=== PATIENT | female | born 1950 | race Caucasian/White ===

== ENCOUNTER 2023-05-28 10:17 | Outpatient (CLI) | payer MEDICARE, OTHER, SELFPAY ==
[2023-05-28 11:16] LABS: Absolute Lymphocyte Count 1.87 X10^3/uL (0.83-4.51); Absolute Neutrophil Count 4.6 X10^3/uL (2.0-7.7); Basophil# 0.05 X10^3/uL; Basophil% 0.7 % (0-1); Eosinophil# 0.08 X10^3/uL; Eosinophils% 1.1 % (0-5); Hematocrit 42.5 % (37-47); Hemoglobin 13.7 g/dL (12.0-15.0); Lymphocyte # 1.87 X10^3/ul (0.83-4.51); Lymphocyte % 25.9 % (19-41); Mean Corp Hgb Conc 32.2 g/dL (32-36); Mean Corpuscular Hgb 27.5 pg (27.0-32.0); Mean Corpuscular Volume 85.3 fL (81-99); Mean Platelet Vol. 11.7 fl (6.2-12.0); Monocyte# 0.59 X10^3/uL; Monocyte% 8.2 % (0-10); NRBC Flagged by Analyzer 0 % (0-5); Neutrophil # 4.59 X10^3/uL (2.7-7.7); Neutrophil % 63.7 % (47-70); Platelet Count 351 K/mm3 (150-450); RBC Distribution Width CV 14.5 % (11.6-14.6); RBC Distribution Width SD 44.7 fl (35.1-43.9); Red Blood Count 4.98 M/mm3 (4.2-5.4); White Blood Count 7.2 K/mm3 (4.4-11.0)
[2023-05-28 11:41] LABS: ALB/GLOB Ratio 1.1 RATIO (0.9-2.4); AST(SGOT) 16 U/L (15-37); Alanine Aminotransfer ALT/SGPT 21 U/L (13-56); Alkaline Phosphatase 90 U/L (45-117); Anion Gap 6 (5-15); BUN 8 mg/dL (7-18); BUN/Creat Ratio 7.9 RATIO (10-20); Calcium,Total 9.3 mg/dL (8.5-10.1); Chloride 105 mmol/L (98-107); Creatinine, Serum 1.01 mg/dL (0.55-1.02); EST Glomerular Filtration Rate 57 mL/min (>60); Est Glom Filt Rate - Afr Amer 69 mL/min (>60); Ferritin 58 ng/mL (8-252); Free T3 3.5 pg/mL (2.18-3.98); Globulin 3.5 g/dL (2.2-4.2); Glucose 84 mg/dL (74-106); Iron 75 ug/dL (50-170); Potassium 3.8 mmol/L (3.5-5.1); Protein, Total 7.5 g/dL (6.4-8.2); Sodium Level 141 mmol/L (136-145); T4 Free Direct 1.11 ng/dL (0.76-1.46); Thyroid Stim Hormone (TSH) 1.52 uIU/mL (0.358-3.74)
== END 2023-05-28 23:59 | disposition home or self-care (01) ==
PROVIDERS: Referring Provider Nurse Practitioner Family; Visit Provider Nurse Practitioner Family
DX: R53.82 Chronic fatigue, unspecified (principal); G31.84 Mild cognitive impairment of uncertain or unknown etiology; R10.9 Unspecified abdominal pain; R63.4 Abnormal weight loss; R19.7 Diarrhea, unspecified; R30.0 Dysuria; R39.82 Chronic bladder pain; R53.81 Other malaise; E03.9 Hypothyroidism, unspecified
CPT/HCPCS: 80053; 82728; 83540; 84439; 84443; 84481; 85025

== ENCOUNTER → 2023-11-26 | Outpatient (CLI) | payer MEDICARE, OTHER, SELFPAY ==
[2023-11-26 09:10] VITALS: BP 153/71; PULSE 78; RESP 16; O2SAT 96; BMI 29.2
--- NOTE | 2023-11-26 10:53 | PRO.PCM_ITS ---
Procedure Report Date of Procedure: 11/26/23 Assessment & Plan Assessment/Plan (1) Complicated UTI (urinary tract infection): Procedures Radiology Radiology US Procedures: Other Procedure See Report (Outpatient PICC line insertion w/ imaging [id number]) Procedure Time Out Time Out Informed consent given: Yes Consent signed: Yes Time out checklist: patient, procedure, site marked/identified, positioning of patient, supplies available and allergies confirmed Time out staff in room: Yes Time out verified: Yes Time out date: 11/26/23 Time out time: 09:15 PICC Line Consent Screening tool completed:: Yes Consent obtained:: Yes Consent given by (patient or responsible libertarian):: patient Line successful (if no, document why in comments):: Yes Insertion Reason for Insertion: Intermediate Medication Date of Insertion: 11/26/23 Ok to use: Yes Type of PICC inserted: Dual Power PICC PICC Lot #: [id number] PICC Reference #: [id number] Microintroducer Used: Yes (in kit) Ultrasound/Equipment Used: Probe Cover Kit Trimmed Length (cm): 39 Insertion Length (cm): 39 Exposed Length (cm): 0 Tip Placement: Caval Atrial Junction Placement Confirmation: 3CG Insertion Vein: Right Brachial Insertion Attempts: 1 Local Anesthesia Used: Lidocaine 1% (in kit) Dressing Applied: Statlock and Tegaderm CHG Arm Measurement above site (in cm): 26 Patient Tolerated Procedure: Well Threading Difficulties: Yes Comments Comment: Patient identity was verified with two patient identifiers. Informed consent was obtained and time-out was completed. Hands were sanitized. The patient was positioned supine with right arm at 90 degrees. The patient's upper arm vasculature was assessed using ultrasound, and the right brachial vein was externally marked. An external measurement was obtained of 39 cm. External leads were applied to the patient's right upper chest and laterally and inferior of the umbilicus on the mid axillary line. Cap, mask, and prep gloves were donned. The underdrape was placed under the patient's arm. The site was prepped with chlorhexidine, and tourniquet was loosely applied. Prep gloves were discarded, and hands were sanitized. The sterile kit was opened with additional supplies dropped in. Sterile gown and gloves were donned, and the patient was draped. The sterile kit was assembled with all needle, introducer, connector, and catheter flushed with sterile normal saline. The marked site of insertion was anesthetized with 1% lidocaine. Patient tolerated well. The right brachial vein was then accessed using ultrasound guidance and guidewire was inserted to safety piyush. The tourniquet was released. The access needle was removed while securing the guidewire in place. The site was again anesthetized with 1% lidocaine, prior to insertion of introducer sheath and dilator. Patient tolerated well. The catheter was trimmed to a length of 39 cm. Using 3C guidance, the catheter was then inserted through the introducer sheath, slowly. There was mild resistance on insertion; however, with patient right arm abduction the catheter was able to be advanced easily. Maximal p-wave, without deflection, was obtained at an insertion length of 39 cm, leaving 0 cm external. The introducer sheath was retracted and peeled away, incrementally, while keeping the catheter secured. The stylet was removed. A flushed needleless connector was attached to each lumen. Blood return was verified and each lumen was flushed with sterile normal saline in a pulsatile fashion. Each lumen was also flushed with a 5 mL heparin flush per provider order and clamped. Total sterile flushes used for the insertion was 8 10 ml syringes. Finally, the insertion site was cleaned with chlorhexidine, and the catheter was secured using a StatLock. The site was covered with a Tegaderm CHG Dressing. Baseline arm circumference was obtained at the insertion site and measured 26 cm. The patient and were provided with a patient education handout on PICC line care and verbalized understanding of infection prevention, heavy lifting restriction, maintaining mobility, and watching for any signs of infection. Patient and are reporting to nurse practitioner Wanda Brunson for further instruction on antibiotic administration and dressing changes. Again PICC line placement verification in the [facility] was obtained using 3 CG te chnology and PICC line is ready for use.
== END | disposition home or self-care (01) ==
PROVIDERS: PCP Family Medicine; Referring Provider Nurse Practitioner Family; Visit Provider Nurse Practitioner Family
DX: N39.0 Urinary tract infection, site not specified (principal); B96.1 Klebsiella pneumoniae [K. pneumoniae] as the cause of diseases classified elsewhere; A77.40 Ehrlichiosis, unspecified
CPT/HCPCS: 36569

== ENCOUNTER 2023-12-03 07:48 | Outpatient (CLI) | payer MEDICARE, OTHER, SELFPAY ==
--- OUTSIDE RECORDS SUMMARY | 2023-12-03 08:16 | XMS RPT_ITS | CCD ---
Author Name Unknown Address [address] [place] [address] Organization [facility] Care Team Providers Care Polyethylene Combiner Name Role Phone Alina Reece Primary Care Provider Allison Post Admitting Unavailable Allison Post Attending Unavailable INES CHAMBERLAIN Attending Unavailable ALINA REECE Primary Care Unavailable INES CHAMBERLAIN Admitting Unavailable INES CHAMBERLAIN Referring Unavailable ALINA REECE Primary Care Unavailable INES CHAMBERLAIN Admitting Unavailable INES CHAMBERLAIN Referring Unavailable ALINA REECE Primary Care Unavailable INES CHAMBERLAIN Attending Unavailable ALINA REECE Primary Care Unavailable GAYATRI THOMAS Admitting Unavailable MARTHA BELLA Attending Unavailable GAYATRI THOMAS Referring Unavailable REECEALINA DUNCAN Primary Care Unavailable INES CHAMBERLAIN Admitting Unavailable ROSALIND DERAS Attending Unavailable INES CHAMBERLAIN Referring Unavailable REECEALINA DUNCAN Primary Care Unavailable CHAMBERLAININES [place] Admitting Unavailable IDALIA ESCALANTE Attending Unavailable INES CHAMBERLAIN Referring Unavailable ALINA REECE Primary Care Unavailable MARTHA BELLA Attending Unavailable MARTHA BELLA Referring Unavailable ALINA REECE Primary Care Unavailable Alina Reece Primary Care Provider Alina Reece Unavailable Unavailable Unavailable Alina Reece Unavailable [phone] Carleen Marques Unavailable Unavailable Carleen Francisco Unavailable Unavailable Unavailable Unavailable Ross Cotter Unavailable Unavailable Sippey, Fide Unavailable Alejandro Lobo Unavailable Unavailab le FloridalmaMarcelle Unavailable Shanell COWART, Alina Kelly Primary Care Provider [phone] HUSSEIN MILLER Attending Unavailable REECE, ALINA LETICIA Primary Care Unavailable Unavailable Unavailable STENTZ, Mr. EID Attending Unavailable REECE, ALINA LETICIA Primary Care Unavailable STENTZ, Mr. EID Referring Unavailable Sippey, Fide Attending Unavailable Floridalma, Marcelle Referring Unavailable REECE, ALINA LETICIA Primary Care Unavailable LEE, AUBREE BOWSERARD Referring Unavailable LEE, AUBREE LOPEZ Attending Unavailable REECE, ALINA LETICIA Primary Care Unavailable LEE, AUBREE TERESE Referring Unavailable LEE, AUBREE LOPEZ Attending Unavailable REECE, ALINA LETICIA Primary Care Unavailable LEE, AUBREE TERESE Referring Unavailable LEE, AUBREE LOPEZ Attending Unavailable REECE, ALINA LETICIA Primary Care Unavailable STENTZ, Mr. EID Attending Unavailable REECE, ALINA LETICIA Primary Care Unavailable STENTZ, Mr. EID Referring Unavailable STENTZ, Mr. EID Referring Unavailable STENTZ, Mr. EID Attending Unavailable REECE, ALINA LETICIA Primary Care Unavailable REECE, ALINA LETICIA Primary Care Unavailable SHEY, Ms. CHARLEY MAGANA Referring Unavailcindy KAT, Ms. CHARLEY MAGANA Attending Unavailcindy Francisco, Ms. Carleen Gilmore Primary Care Unav ailable Floridalma, Marcelle Referring Unavailable Floridalma, Marcelle Attending Unavailable Floridalma, Marcelle Referring Unavailable Floridalma, Marcelle Attending Unavailable REECE, ALINA LETICIA Primary Care Unavailable MALLAPAREDDI, EILZABETH NAG OSCAR Referring Unavailable MALLAPAREDDI, ELIZABETH NAG OSCAR Attending Unavailable REECE, ALINA LETICIA Primary Care Unavailable Floridalma, Marcelle Attending Unavailable Floridalma, Marcelle Referring Unavailable REECE, ALINA LETICIA Primary Care Unavailable REECE, ALINA LETICIA Primary Care Unavailable MALLAPAREDDI, ELIZABETH NAG OSCAR Referring Unavailable MALLAPAREDDI, ELIZABETH NAG OSCAR Attending Unavailable Maryam, MsKiesha Carleen Deirdre Attending Unav ailable SHANELL, ALINA KELLY Primary Care Unavailable MD ALEJANDRO LOBO Attending Unavai MD MAVERICK Burciaga Admitting Unavailable MD MAVERICK JACKSON Referring Unavailable Reece, Dr. Alina Kelly Primary Care Unavailab le Jerald, Carleen Attending Unavailable Reece, Dr. Alina Kelly Primary Care Unavailab le Kamenik, Kiesha Ross Lepe Attending Unavai lable Reece, Dr. Alina Kelly Primary Care Unavailab le JeraldCarleen Attending Unavailable Shanell, Dr. Alina Kelly Primary Care Unavailab le Sippey, Dr. Elizalde Admitting Unavailable Sippey, Dr. Elizalde Attending Unavailable Floridalma, Dr. Marcelle eFrnando Referring Unavailab le Reece, Dr. Alina Kelly Primary Care Unavailab le Sippey, Dr. Elizalde Attending Unavailable Reece, Dr. Alina Kelly Primary Care Unavailab le Lee II, Dr. Aubree Lopez Attending Unavai lable Lee II, Dr. Aubree Lopez Referring Unavai lable Reece, Dr. Alina Kelly Primary [facility] Unavailab le Sippey, Dr. Elizalde Attending Unavailable Shanell, Dr. Alina Kelly Primary Care Unavailab Alina Fraga MD Primary Care Provider Marcelle Hedrick MD Unavailable ALINA Trejo Primary Care MARCELLE Anguiano Attending Unavailable ALINA REECE Primary Care Unavailable ALINA REECE Primary Care Unavailable MAINEFAVIO PALACIOS Attending Unava ilable Allergies Allergy Classification Reported Allergen(s) Allergy Type Date of Onset Reaction(s) Facility (20 sources) Cephalexin; Translations: [Keflex] Drug Allergy 8 Rash [facility] (20 sources) Enoxaparin; Translations: [Unknown] Drug Allergy 8 Other (See Comments) [facility] (20 sources) heparin; Translations: [HEPARIN (BOVINE)] Drug Allergy 8 Other [facility] (20 sources) mesalamine; Translations: [MESALAMINE] Drug Allergy 5 Other [facility] (20 sources) pork allergenic extract; Translations: [PORK EXTRACT] Drug Allergy 2 [facility] (8 sources) heparin; Translations: [HEPARIN] Drug Allergy 8 Other [facility] (20 sources) Amoxicillin; Translations: [Amoxil] Drug Allergy Rash [facility] Work Phone: (20 sources) Enoxaparin; Translations: [Lovenox] Drug Allergy 8 Other, Unknown [facility] Work Phone: (20 sources) pork allergenic extract; Translations: [PORK] Drug Allergy 2 Unknown [facility] Work Phone: (20 sources) Other Allergy to substance (finding) Other [facility] Work Phone: (5 sources) Amoxicillin Drug Allergy Rash [facility] Medications Current Medications Medication Drug Class(es) Dates Sig (Normalized) Sig (Original) losartan potassium 25 mg oral tablet (20 sources) Angiotensin 2 Receptor Lila Start: 05-23-2022 End: 06-09-2024 take 1 tablet by mouth once daily losartan (Cozaar) 25 mg tablet Indications: Hypertension, unspecified type Take 1 tablet (25 mg) by mouth once daily. 90 tablet 3 06/10/2023 06/09/2024 Active Completed/Discontinued Medications Medication Drug Class(es) Dates Sig (Normalized) Sig (Original) acetaminophen 325 mg oral tablet (4 sources) Start: 02-23-2008 acetaminophen(TYLE NOL 325 MG TAB) Take two(2) tablets every four(4) to six(6) hours as needed for pain. 0 02/23/2008 Active Problems Active Problems Problem Classification Problem Date Documented Da te Episodic/Chronic Biliary tract disease (1 source) Other specified diseases of biliary tract; Translations: [Other specified diseases of biliary tract] Onset: 11-21-2022 Chronic Blindness and vision defects (20 sources) Presbyopia; Translations: [Presbyopia] Episodic Cataract (20 sources) Pseudophakia of right eye; Translations: [Lens replaced by other means] Chronic Deficiency and other anemia (20 sources) Anemia; Translations: [Anemia, unspecified] Episodic Essential hypertension (20 sources) Hypertensive disorder; Translations: [Unspecified essential hypertension] Onset: 09-16-2022 06-10-2023 Chronic Gastritis and duodenitis (1 source) Gastritis, unspecified, without bleeding; Translations: [Gastritis, unspecified, without bleeding] Onset: 11-04-2022 Episodic Immunity disorders (4 sources) Sarcoidosis; Translations: [Sarcoidosis, unspecified] Onset: 06-25-2002 01-30-2004 Chronic Intestinal obstruction without hernia (20 sources) Small bowel obstruction; Translations: [Unspecified intestinal obstruction] Onset: 12-22-2017 09-15-2022 Episodic Nausea and vomiting (17 sources) Nausea and vomiting; Translations: [Nausea with vomiting] Onset: 11-04-2022 09-15-2022 Episodic Past or Other Problems Problem Classification Problem Date Documented Da te Episodic/Chronic Abdominal pain (15 sources) Abdominal pain; Translations: [Abdominal pain, unspecified site] Onset: 01-28-2022 Episodic Allergic reactions (2 sources) Allergy status to other drugs, medicaments and biological substances status; Translations: [Allergy status to other antibiotic agents status] Onset: 09-16-2022 Episodic Conditions associated with dizziness or vertigo (1 source) Dizziness and giddiness; Translations: [Dizziness and giddiness] Onset: 03-05-2022 Episodic Genitourinary symptoms and ill-defined conditions (20 sources) Increased frequency of urination; Translations: [Urinary frequency] Onset: 01-16-2022 01-16-2022 Episodic Screening and history of mental health and substance abuse codes (1 source) Personal history of nicotine dependence; Translations: [Personal history of nicotine dependence] Onset: 09-16-2022 Episodic Unclassified (1 source) Onset: 06-10-2023 06-10-2023 Results Test Name Value Interpretation Reference Range Facil ity Vital Signs Date Time Vital Sign Value Performing Clinician Facility 06-10-2023 08:56-0400 Body height 149.9 cm Marcelle Hedrick MD [facility] 06-10-2023 08:56-0400 Body mass index (BMI) [Ratio] 27.23 kg/m2 Marcelle Hedrick MD [facility] 06-10-2023 08:56-0400 Body weight 61.15 kg Marcelle Hedrick MD [facility] 06-10-2023 08:56-0400 Diastolic blood pressure 80 mm[Hg] Marcelle Hedrick MD [facility] 06-10-2023 08:56-0400 Heart rate 63 /min Marcelle Hedrick MD [facility] 06-10-2023 08:56-0400 SaO2% (BldA) [Mass fraction] 98 % Marcelle Hedrick MD [facility] 06-10-2023 08:56-0400 Systolic blood pressure 120 mm[Hg] Marcelle Hedrick MD [facility] 10-25-2022 11:25-0500 Diastolic blood pressure 67 mm[Hg] Hussein Miller MD Work Phone: [facility] 10-25-2022 11:25-0500 Heart rate 61 /min Hussein Miller MD Work Phone: [facility] 10-25-2022 11:25-0500 Respiratory rate 16 /min Hussein Miller MD Work Phone: [facility] 10-25-2022 11:25-0500 SaO2% (BldA) [Mass fraction] 96 % Hussein Miller MD Work Phone: [facility] 10-25-2022 11:25-0500 Systolic blood pressure 147 mm[Hg] Hussein Miller MD Work Phone: [facility] 10-25-2022 09:55-0500 Body temperature 97.81 [degF] Hussein Miller MD Work Phone: [facility] 10-24-2022 13:21-0500 Body height 149.86 cm Alina Reece Work Phone: [facility] Work Phone: 10-24-2022 13:21-0500 Body mass index (BMI) [Ratio] 29.08 kg/m2 Alina Reece Work Phone: [facility] Work Phone: 10-24-2022 13:21-0500 Body surface area Derived from formula 1.6 m2 Alina Reece Work Phone: [facility] Work Phone: 10-24-2022 13:21-0500 Body weight 65.32 kg Alina O Reece Work Phone: [facility] Work Phone: 10-24-2022 13:21-0500 Diastolic blood pressure 78 mm[Hg] Alina O Reece Work Phone: [facility] Work Phone: 10-24-2022 13:21-0500 Heart rate 77 /min Alina O Reece Work Phone: [facility] Work Phone: 10-24-2022 13:21-0500 Systolic blood pressure 126 mm[Hg] Alina O Reece Work Phone: [facility] Work Phone: 10-11-2022 10:37-0500 Body height 149.8 cm Alina O Reece Work Phone: [facility] Work Phone: 10-11-2022 10:37-0500 Body mass index (BMI) [Ratio] 29.37 kg/m2 Alina O Reece Work Phone: [facility] Work Phone: 10-11-2022 10:37-0500 Body surface area Derived from formula 1.61 m2 Alina O Reece Work Phone: [facility] Work Phone: 10-11-2022 10:37-0500 Body weight 65.9 kg Alina O Reece Work Phone: [facility] Work Phone: 10-11-2022 10:37-0500 Diastolic blood pressure 82 mm[Hg] Alina O Reece Work Phone: [facility] Work Phone: 10-11-2022 10:37-0500 Heart rate 73 /min Alina O Reece Work Phone: [facility] Work Phone: 10-11-2022 10:37-0500 Systolic blood pressure 118 mm[Hg] Alina O Reece Work Phone: [facility] Work Phone: 09-24-2022 14:01-0500 Body height 149.81 cm Alina O Reece Work Phone: [facility] Work Phone: 09-24-2022 14:01-0500 Body mass index (BMI) [Ratio] 29.63 kg/m2 Alina O Reece Work Phone: [facility] Work Phone: 09-24-2022 14:01-0500 Body surface area Derived from formula 1.62 m2 Alina O Reece Work Phone: [facility] Work Phone: 09-24-2022 14:01-0500 Body weight 66.49 kg Alina O Reece Work Phone: [facility] Work Phone: 09-24-2022 14:01-0500 Diastolic blood pressure 70 mm[Hg] Alina O Reece Work Phone: [facility] Work Phone: 09-24-2022 14:01-0500 Heart rate 74 /min Alina O Reece Work Phone: [facility] Work Phone: 09-24-2022 14:01-0500 Systolic blood pressure 126 mm[Hg] Alina O Reece Work Phone: [facility] Work Phone: 09-17-2022 09:33-0500 Body height 152.4 cm Hussein Miller MD Work Phone: [facility] 09-17-2022 09:33-0500 Body weight 62.6 kg Hussein Miller MD Work Phone: [facility] 09-17-2022 09:33-0500 Diastolic blood pressure 57 mm[Hg] Hussein Miller MD Work Phone: [facility] 09-17-2022 09:33-0500 Heart rate 57 /min Hussein Miller MD Work Phone: [facility] 09-17-2022 09:33-0500 Systolic blood pressure 145 mm[Hg] Hussein Miller MD Work Phone: [facility] 09-16-2022 09:49-0500 Body temperature 98.24 [degF] Alina Reece Other Phone: [facility] 09-16-2022 09:49-0500 Diastolic blood pressure 66 mm[Hg] Alina Reece Other Phone: [facility] 09-16-2022 09:49-0500 Heart rate 81 /min Alina Reece Other Phone: [facility] 09-16-2022 09:49-0500 Respiratory rate 17 /min Alina Reece Other Phone: [facility] 09-16-2022 09:49-0500 SaO2% (BldA) [Mass fraction] 96 % Alina Reece Other Phone: [facility] 09-16-2022 09:49-0500 Systolic blood pressure 159 mm[Hg] Alina Reece Other Phone: [facility] 08-12-2022 16:31-0500 Body height 149.8 cm Alina Reece Work Phone: [facility] Work Phone: 08-12-2022 16:31-0500 Body mass index (BMI) [Ratio] 2.95 kg/m2 Alina O Reece Work Phone: [facility] Work Phone: 08-12-2022 16:31-0500 Body surface area Derived from formula 0.61 m2 Alina O Reece Work Phone: [facility] Work Phone: 08-12-2022 16:31-0500 Body weight 6.62 kg Alina O Reece Work Phone: [facility] Work Phone: 08-12-2022 16:31-0500 Diastolic blood pressure 82 mm[Hg] Alina O Reece Work Phone: [facility] Work Phone: 08-12-2022 16:31-0500 Heart rate 83 /min Alina O Reece Work Phone: [facility] Work Phone: 08-12-2022 16:31-0500 Systolic blood pressure 118 mm[Hg] Alina O Reece Work Phone: [facility] Work Phone: 06-07-2022 08:39-0400 Body height 149.8 cm Alina O Reece Work Phone: [facility] Work Phone: 06-07-2022 08:39-0400 Body mass index (BMI) [Ratio] 31.25 kg/m2 Alina O Reece Work Phone: [facility] Work Phone: 06-07-2022 08:39-0400 Body surface area Derived from formula 1.65 m2 Alina O Reece Work Phone: [facility] Work Phone: 06-07-2022 08:39-0400 Body weight 70.12 kg Alina O Reece Work Phone: [facility] Work Phone: 06-07-2022 08:39-0400 Diastolic blood pressure 80 mm[Hg] Alina O Reece Work Phone: [facility] Work Phone: 06-07-2022 08:39-0400 Heart rate 64 /min Alina O Reece Work Phone: [facility] Work Phone: 06-07-2022 08:39-0400 Systolic blood pressure 124 mm[Hg] Alina O Reece Work Phone: [facility] Work Phone: 05-31-2022 09:15-0400 Body mass index (BMI) [Ratio] 31.1 kg/m2 Alina O Reece Work Phone: [facility] Work Phone: 05-31-2022 09:15-0400 Body surface area Derived from formula 1.65 m2 Alina O Reece Work Phone: [facility] Work Phone: 05-31-2022 09:15-0400 Body weight 69.85 kg Alina O Reece Work Phone: [facility] Work Phone: 05-23-2022 16:14-0400 Body height 149.86 cm Alina O Reece Work Phone: [facility] Work Phone: 05-23-2022 16:14-0400 Body mass index (BMI) [Ratio] 31.19 kg/m2 Alina O Reece Work Phone: [facility] Work Phone: 05-23-2022 16:14-0400 Body surface area Derived from formula 1.65 m2 Alina O Reece Work Phone: [facility] Work Phone: 05-23-2022 16:14-0400 Body weight 70.03 kg Alina O Reece Work Phone: [facility] Work Phone: 05-23-2022 16:14-0400 Diastolic blood pressure 90 mm[Hg] Alina O Reece Work Phone: [facility] Work Phone: 05-23-2022 16:14-0400 Heart rate 72 /min Alina O Reece Work Phone: [facility] Work Phone: 05-23-2022 16:14-0400 Systolic blood pressure 148 mm[Hg] Alina O Reece Work Phone: [facility] Work Phone: 04-29-2022 09:07-0400 Body mass index (BMI) [Ratio] 31.72 kg/m2 Alina O Reece Work Phone: [facility] Work Phone: 04-29-2022 09:07-0400 Body surface area Derived from formula 1.66 m2 Alina O Reece Work Phone: [facility] Work Phone: 04-29-2022 09:07-0400 Body weight 71.24 kg Alina O Reece Work Phone: [facility] Work Phone: 04-29-2022 09:07-0400 Diastolic blood pressure 101 mm[Hg] Alina O Reece Work Phone: [facility] Work Phone: 04-29-2022 09:07-0400 Heart rate 74 /min Alina O Reece Work Phone: [facility] Work Phone: 04-29-2022 09:07-0400 Systolic blood pressure 186 mm[Hg] Alina O Reece Work Phone: [facility] Work Phone: 04-23-2022 14:44-0400 Body height 149.86 cm Alina O Reece Work Phone: [facility] Work Phone: 04-23-2022 14:44-0400 Body mass index (BMI) [Ratio] 31.51 kg/m2 Alina O Reece Work Phone: [facility] Work Phone: 04-23-2022 14:44-0400 Body surface area Derived from formula 1.66 m2 Alina O Reece Work Phone: [facility] Work Phone: 04-23-2022 14:44-0400 Body weight 70.76 kg Alina O Reece Work Phone: [facility] Work Phone: 04-23-2022 14:44-0400 Diastolic blood pressure 80 mm[Hg] Alina O Reece Work Phone: [facility] Work Phone: 04-23-2022 14:44-0400 Heart rate 76 /min Alina O Reece Work Phone: [facility] Work Phone: 04-23-2022 14:44-0400 Systolic blood pressure 144 mm[Hg] Alina O Reece Work Phone: [facility] Work Phone: 03-14-2022 14:14-0400 Body height 149.86 cm Alina O Reece Work Phone: [facility] Work Phone: 03-14-2022 14:14-0400 Body mass index (BMI) [Ratio] 31.71 kg/m2 Alina O Reece Work Phone: [facility] Work Phone: 03-14-2022 14:14-0400 Body surface area Derived from formula 1.66 m2 Alina O Reece Work Phone: [facility] Work Phone: 03-14-2022 14:14-0400 Body temperature 97.8 [degF] Alina O Reece Work Phone: [facility] Work Phone: 03-14-2022 14:14-0400 Body weight 71.21 kg Alina O Reece Work Phone: [facility] Work Phone: 03-14-2022 14:14-0400 Diastolic blood pressure 82 mm[Hg] Alina O Reece Work Phone: [facility] Work Phone: 03-14-2022 14:14-0400 Heart rate 72 /min Alina O Reece Work Phone: [facility] Work Phone: 03-14-2022 14:14-0400 Systolic blood pressure 148 mm[Hg] Alina O Reece Work Phone: [facility] Work Phone: 03-05-2022 16:24-0400 Body height 154.9 cm Alina Reece Other Phone: [facility] 03-05-2022 16:24-0400 Body temperature 97.7 [degF] Alina Reece Other Phone: [facility] 03-05-2022 16:24-0400 Diastolic blood pressure 77 mm[Hg] Alina Reece Other Phone: [facility] 03-05-2022 16:24-0400 Heart rate 77 /min Alina Reece Other Phone: [facility] 03-05-2022 16:24-0400 Respiratory rate 16 /min Alina Reece Other Phone: [facility] 03-05-2022 16:24-0400 SaO2% (BldA) [Mass fraction] 97 % Alina Reece Other Phone: [facility] 03-05-2022 16:24-0400 Systolic blood pressure 168 mm[Hg] Alina Reece Other Phone: [facility] 01-28-2022 13:30-0400 Body height 152.4 cm Alina Reece Other Phone: [facility] 01-28-2022 13:30-0400 Body temperature 97.88 [degF] Alina Reece Other Phone: [facility] 01-28-2022 13:30-0400 Diastolic blood pressure 77 mm[Hg] Alina Reece Other Phone: [facility] 01-28-2022 13:30-0400 Heart rate 71 /min Alina Reece Other Phone: [facility] 01-28-2022 13:30-0400 Respiratory rate 20 /min Alina Reece Other Phone: [facility] 01-28-2022 13:30-0400 SaO2% (BldA) [Mass fraction] 97 % Alina Reece Other Phone: [facility] 01-28-2022 13:30-0400 Systolic blood pressure 172 mm[Hg] Alina Reece Other Phone: [facility] 01-16-2022 15:49-0400 Body height 152.4 cm Alina Reece Other Phone: [facility] 01-16-2022 15:49-0400 Body temperature 97.7 [degF] Alina Cokerer Other Phone: [facility] 01-16-2022 15:49-0400 Diastolic blood pressure 74 mm[Hg] Alina Cokerer Other Phone: [facility] 01-16-2022 15:49-0400 Heart rate 74 /min Alina Reece Other Phone: [facility] 01-16-2022 15:49-0400 SaO2% (BldA) [Mass fraction] 99 % Alina Reece Other Phone: [facility] 01-16-2022 15:49-0400 Systolic blood pressure 191 mm[Hg] Alina Cokerer Other Phone: [facility] 01-15-2022 16:00-0400 Body height 151.5 cm Alina Althea Reece Work Phone: [employer] Work Phone: 01-15-2022 16:00-0400 Body mass index (BMI) [Ratio] 30.93 kg/m2 Alina Althea Reece Work Phone: [employer] Work Phone: 01-15-2022 16:00-0400 Body surface area Derived from formula 1.67 m2 Alina O Reece Work Phone: [employer] [facility] Work Phone: 01-15-2022 16:00-0400 Body weight 70.98 kg Alina O Reece Work Phone: [employer] [facility] [facility] Work Phone: 01-15-2022 16:00-0400 Diastolic blood pressure 72 mm[Hg] Alina O Reeec Work Phone: [employer] [facility] Work Phone: 01-15-2022 16:00-0400 Heart rate 81 /min Alina O Reece Work Phone: [facility] Work Phone: 01-15-2022 16:00-0400 Systolic blood pressure 144 mm[Hg] Alina O Reece Work Phone: [facility] Work Phone: 09-11-2021 11:40-0500 Body height 152.4 cm Alina Reece Other Phone: [facility] 09-11-2021 11:40-0500 Body temperature 97.52 [degF] Alina Reece Other Phone: [facility] 09-11-2021 11:40-0500 Diastolic blood pressure 74 mm[Hg] Alina Reece Other Phone: [facility] 09-11-2021 11:40-0500 Heart rate 81 /min Alina Reece Other Phone: [facility] 09-11-2021 11:40-0500 Respiratory rate 20 /min Alina Reece Other Phone: [facility] 09-11-2021 11:40-0500 SaO2% (BldA) [Mass fraction] 98 % Alina Reece Other Phone: [facility] 09-11-2021 11:40-0500 Systolic blood pressure 168 mm[Hg] Alina Reece Other Phone: [facility] 03-06-2020 14:52-0400 BMI (Body Mass Index) 29.29 kg/m2 [facility] 03-06-2020 14:52-0400 Body weight 68.04 kg Martha [facility] 03-06-2020 14:52-0400 Height 152.4 cm Martha [facility] 11-05-2018 11:20-0500 BMI (Body Mass Index) 29.29 kg/m2 [facility] 11-05-2018 11:20-0500 Body weight 68.04 kg [facility] 11-05-2018 11:20-0500 BP Diastolic 75 mm[Hg] [facility] 11-05-2018 11:20-0500 BP Systolic 187 mm[Hg] [facility] 11-05-2018 11:20-0500 Height 152.4 cm [facility] 11-05-2018 11:20-0500 Pulse (Heart Rate) 71 /min [facility] Encounters Encounter Date Encounter Type Care Provider Facility Start: 10-04-2023 End: 10-04-2023 Emergency department patient visit ALINA KELLY [facility] Start: 06-10-2023 End: 06-11-2023 ambulatory ALINA REECE [facility] Start: 06-10-2023 End: 06-10-2023 ambulatory MARCELLE Willson [facility] Amb[facility] Start: 06-10-2023 End: 06-10-2023 Encounter for general adult medical examination without abnormal findings MARCELLE HEDRICK [facility] Amb[facility] Start: 06-10-2023 End: 06-10-2023 Assay of hemosiderin, quant Marcelle Hedrick MD [facility] Work Phone: Start: 06-10-2023 End: 06-10-2023 Patient encounter procedure Marcelle Hedrick MD [facility] Procedures Date Procedure Procedure Detail Performing Clinician Start: 06-10-2023 Basic metabolic 2000 panel - Serum or Plasma ALINA REECE Start: 06-10-2023 Blood count hemoglobin ALINA REECE Start: 06-10-2023 Lipid panel ALINA REECE Start: 11-04-2022 Esophagogastroduodenoscopy Alina wesley Work Phone: Start: 06-07-2022 Follow-up visit Start: 12-12-2021 Mammography Marcelle Hedrick MD Start: 12-04-2020 Lipid 1996 panel - Serum or Plasma Yaen Hedrick MD Start: 03-20-2020 MRI of lumbar spine without contrast Martha Bella Work Phone: Start: 04-14-2002 Colonoscopy Hussein Miller MD Work Phone: section Alina Lackey edgar Work Phone: Excision of colon Alina Anderson nelson Work Phone: Operation on gallbladder Hussein Andersonyder Work Phone: Plan of Treatment Date Care Activity Detail Author Start: 12-04-2025 Lipid panel Lipid Panel [facility] Start: 11-06-2025 Screening for malignant neoplasm of colon [facility] Start: 06-14-2024 End: 06-14-2024 Patient encounter procedure 06/14/2024 8:30 AM EDT Office Visit [facility] [address] [place] [address] Alina Reece MD [address] [facility] [place], [place] [id number] [facility] Start: 06-10-2023 End: 06-10-2024 Basic metabolic 2000 panel - Serum or Plasma Basic Metabolic Panel Lab Routine Hypertension, unspecified type Expected: 06/10/2023 (Approximate), Expires: 06/10/2024 [facility] Work Phone: Payers Date Payer Category Payer Private Health Insurance AENA A [employer] xxxxxxxxxx 2017-Present xxxxxxxxxx [id number] 2017 Private Health Insurance [id number] 2017 Private Health Insurance [employer] A [employer] FUND [id number] 2017-Present [id number] 2017 Private Health Insurance [id number] 2015 Medicare MEDICARE MEDICAR E PART A & B xxxxxxxxxxx 2015-Present [place] xxxxxxxxxxx [id number] 2015 Medicare [id number] 2015 Medicare MEDICARE MEDICAR E PART A & B [id number] 2015-Present [place] [id number] 2015 Medicare [id number] 2015 Unknown 1950 Unknown [id number] 2.16.840.1.377802.3.579.2 .903 1950 Unknown [id number] 2.16.840.1.056802.3.579.2 .903 1950 Unknown [id number] 2.16.840.1.668825.3.579.2 .903 1950 Unknown [id number] 2.16.840.1.876197.3.579.2 .903 1950 Unknown [id number] 2.16.840.1.802132.3.579.2 .903 1950 Unknown [id number] 2.16.840.1.272911.3.579.2 .903 1950 Unknown [id number] 2.16.840.1.779513.3.579.2 .903 1950 Unknown [id number] 2.16.840.1.091333.3.579.2 .903 1950 Unknown [id number] 2.16.840.1.250758.3.579.2 .356 1950 Unknown [id number] 2.16.840.1.192778.3.579.2 .356 1950 Unknown [id number] 2.16.840.1.270228.3.579.2 .356 1950 Unknown [id number] 2.16.840.1.722488.3.579.2 .356 1950 Unknown [id number] 2.16.840.1.848066.3.579.2 .356 1950 Unknown [id number] 2.16.840.1.667917.3.579.2 .356 1950 Unknown [id number] 2.16.840.1.573137.3.579.2 .356 1950 Unknown [id number] 2.16.840.1.542746.3.579.2 .356 1950 Unknown [id number] 2.16.840.1.611615.3.579.2 .356 1950 Unknown [id number] 2.16.840.1.971594.3.579.2 .356 1950 Unknown [id number] 2.16.840.1.089848.3.579.2 .356 1950 Unknown [id number] 2.16.840.1.343019.3.579.2 .356 1950 Unknown [id number] 2.16.840.1.192978.3.579.2 .356 1950 Unknown [id number] 2.16.840.1.760833.3.579.2 .356 1950 Unknown [id number] 2.16.840.1.910544.3.579.2 .1068 1950 Unknown [id number] 2.16.840.1.879008.3.579.2 .1068 1950 Unknown [id number] 2.16.840.1.001462.3.579.2 .106 1950 Unknown [id number] 2.16.840.1.857573.3.579.2 .1069 1950 Unknown [id number] 2.16.840.1.515032.3.579.2 .1069 1950 Unknown [id number] 2.16.840.1.037286.3.579.2 .1069 1950 Unknown [id number] 2.16.840.1.302432.3.579.2 .1069 1950 Unknown [id number] 2.16.840.1.011854.3.579.2 .1069 1950 Unknown [id number] 2.16.840.1.848348.3.579.2 .1245 1950 Unknown [id number] 2.16.840.1.368012.3.579.2 .1244 1950 Unknown [id number] 2.16.840.1.786513.3.579.2 .902 Social History Date Type Detail Facility Start: 11-05-2018 End: 06-10-2023 Tobacco smoking status ALIS Former smoker [facility] End: 11-05-1993 History of tobacco use Current smoker [facility] Start: 11-05-2018 History SDOH Alcohol Frequency 1 [facility] Start: 1950 Sex Assigned At Not on file [facility] Start: 09-08-2019 End: 09-14-2019 Alcohol intake Lifetime non-drinker (finding) [facility] Exposure to SARS-CoV -2 (event) Not sure [facility] Start: 03-06-2020 End: 06-10-2023 Tobacco use and exposure Never used [facility] Former smoker Former smoker [facility] Work Phone: Tobacco smoking consumption unknown [facility] End: 10-06-1993 History of tobacco use Cigarette Smoker [facility] Start: 04-03-2020 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) [facility] Start: 06-10-2023 Alcohol intake Current drinke r of alcohol (finding) [facility] Work Phone: Gender identity Not on file [facility] Work Phone: Functional Status Date Assessment Result Facility Functional observable [facility] Mental Status Date Assessment Result Facility 09-16-2022 Cognitive functions 0229:47 [facility] Clinical Notes 04-29-2007 to 06-10-2023 Marcelle Hedrick MD - 06/10/2023 8:40 AM EDTTelephone Encounter - Carmelita Mcleod RN - 10/28/2022 10:51 AM Dwight Brady RN - 10/25/2022 10:32 AM EST Note Date & Type Note Facility 06-10-2023 History of Present illness Narrative Subjective Reason for Visit: Serena Clemons is an 72 y.o. female here for a Medicare Wellness visit. Past Medical, Surgical, and Family History reviewed and updated in chart. Reviewed all medications by prescribing practitioner or clinical pharmacist (such as prescriptions, OTCs, herbal therapies and supplements) and documented in the medical record. HPI HTN we controlled with med H/o complete colectomy due to IBD Chronic nausea intermittent Has had intestinal obstructions Complete work up early this year The 10-year ASCVD risk score (Kelli DK, et al., 2019) is: 13.3% Values used to calculate the score: Age: 72 years Sex: Female Is Non- : No Diabetic: No Tobacco smoker: No Systolic Blood Pressure: 120 mmHg Is BP treated: Yes HDL Cholesterol: 53 mg/dL Total Cholesterol: 170 mg/dL ASCVD risk calculator as above I have discussed with the patient their cardiovascular risk. I have recommended behavioral therapies of nutritional choices, exercise and elimination of habits contributing to risk. We agreed on a plan how they may be able to reduce their risk. For patients 40 to 70 with a risk of 20% who are not at risk of bleeding complications aspirin was recommended. For patients 40 to 75 with risk of 10%, diabetes or ckd statins were recommended. (G0446, 59 Z71.89 cardiac risk counseling) Discussed low fat diet and sources of calcium Wt loss which pt is slowly losing Eats well Patient Care Team: Alina Reece MD as PCP - General Marcelle Hedrick MD as PCP - MSSP ACO Attributed Provider Review of Systems Respiratory: Negative for cough and shortness of breath. Cardiovascular: Negative for chest pain, palpitations and leg swelling. Gastrointestinal: Positive for nausea. Objective Vitals: BP 120/80 Pulse 63 Ht 1.499 m (4' 11 ) Wt 61.1 kg (134 lb 12.8 oz) SpO2 98% BMI 27.23 kg/m Physical Exam Vitals reviewed. Constitutional: General: She is not in acute distress. Appearance: Normal appearance. HENT: Head: Normocephalic and atraumatic. Eyes: Conjunctiva/sclera: Conjunctivae normal. Cardiovascular: Rate and Rhythm: Normal rate and regular rhythm. Heart sounds: No murmur heard. Pulmonary: Effort: Pulmonary effort is normal. Breath sounds: Normal breath sounds. Abdominal: General: Abdomen is flat. Bowel sounds are normal. Palpations: Abdomen is soft. There is no mass. Musculoskeletal: Cervical back: Neck supple. Lymphadenopathy: Cervical: No cervical adenopathy. Skin: General: Skin is warm and dry. Neurological: General: No focal deficit present. Mental Status: She is alert and oriented to person, place, and time. Psychiatric: Mood and Affect: Mood normal. Behavior: Behavior normal. Thought Content: Thought content normal. Judgment: Judgment normal. Assessment/Plan Problem List Items Addressed This Visit None Visit Diagnoses Routine general medical examination at health care facility - Primary Hypertension, unspecified type Relevant Medications losartan (Cozaar) 25 mg tablet Other Relevant Orders Lipid Panel Basic Metabolic Panel Hemoglobin Encounter for screening mammogram for breast cancer Relevant Orders BI mammo bilateral screening tomosynthesis Menopause Relevant Orders XR DEXA bone density Cardiac risk counseling documented in this encounter [facility] Work Phone: 11-04-2022 Note History & Physical R eviewed: I have reviewed the History and Physical dated: 24-Oct-2022 History and Physical reviewed and relevant findings noted. Patient examined to review pertinent physical findings.: Significant findings noted below Findings: SBFT normal. Home Medications Reviewed: no changes noted Allergies Reviewed: no changes noted ERAS (Enhanced Recovery After Surgery): ERAS Patient: no Consent: COVID-19 Consent: COVID-19 Risk ConsentSurgeon has reviewed marrero risks related to the risk of hamlet COVID-19 and if they contract COVID-19 what the risks are. Electronic Signatures: Fide Person) (Signed 04-Nov-2022 06:53) Authored: History & Physical Reviewed, ERAS, Consent, Note Completion Last Updated: 04-Nov-2022 06:53 by Fide Person) [facility] 10-28-2022 Miscellaneous Notes Called patient, verified name and , and asked % of pain relief and any functional improvement since L5-S1 Interlaminar epidural steroid injection procedure with Dr Miller on 10/25/22. Patient states I have had 100 % of pain relief since my procedure on 10/25/22 and functional improvement in being able to stand and walk easier with less pain since the procedure. Patient denies any problems or further questions at this time. Patient instructed to call Pain Management office if she has any further questions or concerns. Plan: She is to return to clinic in 8 weeks for follow up (BM). Call transferred to Panel Builder to schedule a 8 week f/u appointment with Pepper TURNER at the [place] documented in this encounter [facility] 10-25-2022 Nurse Note Other: 0955 Upon arrival to post op, dr Miller ordered to give patient the rest of the fluid and another 500mL bag. Pt had slight headache upon sitting up. Relieved with laying down.Dr Miller out to see patient 1015 Pt up to the bathroom and states headache worse. Pt urinated and back to bed at 30 degrees. States headache better. 1030 Dr. Miller out to see patient and would like patient to lay down while receiving last bag of fluid. at bedside. 1130 2nd bag of fluid in. Pt feels better. Renee called to Dr. Miller and ok to discharge 1145 Pt up to bathroom and dressed. documented in this encounter [facility] 10-25-2022 History and physical note UPDATED PROCEDURAL SEDATION HISTORY AND PHYSICAL EXAMINATION SERVICE DATE: 10/25/2022 SERVICE TIME: 9.11 am PHYSICAL EXAM MUST BE COMPLETED ON ADMISSION PROCEDURE: LUMBAR EPIDURAL BLOCK W/INJECTION NON NEUROLYTIC W/IMAGE GUIDANCE Procedure Indications: back pain The History and Physical (completed in the past 30 days) has been reviewed and the patient has been examined. The contents accurately reflect the patient's condition with the following additions or revisions since the H&P was completed. ASA Class: ASA Class:: Patient with severe systemic disease Examination indicates no changes. AIRWAY: Airway Visualization of Uvula: Yes Mouth opening greater than 2 fingerbreadths: Yes Neck Full Range of Motion: Yes LUNGS: Lungs clear to auscultation CARDIAC: Regular rhythm,Regular rate Provisional Diagnosis/Treatment Plan: SEDATION GOAL: Moderate This H&P can be found in the attached. SIGNATURE: Hussein Miller MD PATIENT NAME: Serena Clemons DATE: October 25, 2022 TIME: 9:11 AM PROCEDURAL SEDATION HISTORY AND PHYSICAL EXAM SERVICE DATE: 10/25/2022 SERVICE TIME: 8:35 AM Subjective HPI: This is a 72 year old female who presents with back pain PAST ANESTHESIA HISTORY: No history of adverse event PAST MEDICAL HISTORY Diagnosis Date Diarrhea Hemorrhage of gastrointestinal tract, unspecified Sarcoidosis Ulcerative colitis, unspecified PAST SURGICAL HISTORY Procedure Laterality Date COLONOSCOP W/ OR W/O [facility] SPEC 07/29/05 Colonoscopy PAST SURGICAL HISTORY OF [place] PAST SURGICAL HISTORY OF [place] PAST SURGICAL HISTORY OF PAST SURGICAL HISTORY OF FOOT SURGERY PAST SURGICAL HISTORY OF 05/20/2007 Total abdominal colectomy, end-ileostomy formation PAST SURGICAL HISTORY OF 05/24/2007 Local revision of ileostomy with small bowel resection and recreation of end ileostomy. PAST SURGICAL HISTORY OF 02/05/2008 Completion proctectomy with ileal pouch-anal anastomosis, diverting loop ileostomy, revision of scar, repair of enterotomy PAST SURGICAL HISTORY OF 05/13/2008 Closure of loop ileostomy with small bowel resection and Prior to Admission medications as of 10/25/22 0824 Medication Sig Last Dose Taking losartan (COZAAR) 25 mg tablet Take 25 mg by mouth once daily. 10/24/2022 Yes Multivitamin capsule Take 1 capsule by mouth once daily. 10/24/2022 Yes calcium carbonate/vitamin D3 (CALCIUM + D ORAL) Take by mouth once daily. 10/24/2022 Yes cyanocobalamin, vitamin B-12, (VITAMIN B12 ORAL) Take by mouth once daily. 10/24/2022 Yes acetaminophen(TYLENOL 325 MG TAB) Take two(2) tablets every four(4) to six(6) hours as needed for pain. 10/24/2022 Yes gabapentin (NEURONTIN) 100 mg capsule 1 cap at bedtime for 3 days. Increase by 1 cap every 3 days until you a re on 3 caps at bedtime ALLERGIES Allergen Reactions Asacol [Mesalamine] Denies allery to ASACOL 06/23/2007 Heparin (Bovine) Keflex [Cephalexin] Rash Lovenox [Enoxaparin* Pork Objective PHYSICAL EXAM: The remainder of the physical exam is noncontributory. AIRWAY: Airway Visualization of Uvula: Yes Mouth opening greater than 2 fingerbreadths: Yes Neck Full Range of Motion: Yes LUNGS: Lungs clear to auscultation CARDIAC: Regular rhythm,Regular rate Assessment/Plan ASA Class: ASA Class:: Patient with severe systemic disease Active Problems: Radicular syndrome of left lower extremity [M54.10] Spinal stenosis of lumbar region with neurogenic claudication [M48.062] Medication and Non-Pharmacologic VTE Prophylaxis/Anticoagulants VTE Prophylaxis: N/A Provisional Diagnosis/Treatment Plan: LUMBAR EPIDURAL BLOCK W/INJECTION NON NEUROLYTIC W/IMAGE GUIDANCE SIGNATURE: Namrata Holland APRN.CNP PATIENT NAME: Serena Clemons DATE: October 25, 2022 TIME: 8:35 AM documented in this encounter [facility] 10-25-2022 Surgical operation note Patient Name Medical Record # Serena Clemons [id number] Date of : 1950 Admit Date: October 25, 2022 Sex / Age: female/72 year old Discharge Date: October 25, 2022 Date: October 25, 2022 Attending Physician: Hussein Miller MD Service: Pain Managment LOG ID: [id number] Surgery/Procedure Date: 10/25/2022 Incision/Procedure Start Time: 9:41 AM Incision Close/Procedure End Time: 9:50 AM PREOPERATIVE DIAGNOSIS: Thoracic/Lumbosacral Neuritis, Spinal Stenosis - Lumbar with neurogenic claudication, and Lumbar Degenerative Disc POSTOPERATIVE DIAGNOSIS: Same NAME OF OPERATION: L5-S1 Interlaminar epidural steroid injection under fluoroscopic guidance. Had left L 5-S1 and S1 in 2021. SURGEON: Hussein Miller MD ONLINE ADVERTISING ANALYST: None. ANESTHESIA: Local INFORMED CONSENT: Risks, benefits and alternatives were discussed with the patient in detail. She verbalized understanding and agreed to proceed. PROCEDURE: The patient was brought to fluoroscopy OR suite. Intravenous access was obtained prior to the procedure. The patient was positioned prone on the fluoroscopy table. Continuous hemodynamic monitoring was initiated including blood pressure, EKG and pulse oximetry. Intravenous sedation was not administered. The area of the lumbar spine was prepped well with povidone-iodine x 3 and draped into a sterile field. Skin anesthesia was achieved using total of 3 cc of lidocaine 1 % over receptive injection site. 22 gauge 3.5 inch Tuohy needle was slowly inserted and advanced (LEFT paramedian) using [id number] technique to normal saline with AP and Oblique fluoroscopic imaging for needle guidance. Negative aspiration for blood and CSF was confirmed. Epidural contrast spread was confirmed using 1mL of Omnipaque contrast - however there also appeared to be some subdural uptake of contrast . Absence of vascular uptake was confirmed as well. A total of 1 cc of NS mixed with 10 mg of dexamethasone was injected. Needle was then removed and bleeding was nil. Sterile dressing was applied and the patient was brought to the Recovery Room in stable condition. Complications: None. Estimated Blood Loss: None. Drains: None. Implantable Device: None. Specimen: None. I, Hussein Miller MD, performed the entire procedure. ASSESSMENT AND PLAN: Serena Clemons is status post L5-S1 interlaminar epidural steroid injection. She did very well without any apparent complications. She is to return to clinic in 8 weeks for follow up (BM). Options going forward are likely TFESI (left L 4-5 and left L 5-S1) based on her degree of stenosis and the subdural uptake noted along with the epidural contrast spread at interlaminar L 5-S1. Postoperative instructions were given. She voiced understanding, and she was taken to the recovery room in stable condition. Hussein Miller MD Pain Management October 25, 2022 documented in this encounter [facility] 09-17-2022 Note HNO ID: [id number] Author: Hussein Miller MD Service: ? Author Type: Physician Type: Progress Notes Filed: 09/17/2022 10:43 AM Note Text: Ms. Clemons a 71 year old female returns today for follow up of low back pain, she states that symptoms are slightly worse. Pt requesting another TFESI. PAIN: Pain Yes. Location: low back pain , rates pain a 3 on a pain scale of 1-10. Patient describes pain as aching, duration to the present time occuring daily. Pt c/o numbness in left foot. Pt has no pain when sitting, pain increases with activity. MEDICATIONS: Medications reviewed and verified. Current Outpatient Medications Medication Sig Multivitamin capsule Take 1 capsule by mouth once daily. calcium carbonate/vitamin D3 (CALCIUM + D ORAL) Take by mouth once daily. cyanocobalamin, vitamin B-12, (VITAMIN B12 ORAL) Take by mouth once daily. gabapentin (NEURONTIN) 100 mg capsule 1 cap at bedtime for 3 days. Increase by 1 cap every 3 days until you a re on 3 caps at bedtime acetaminophen(TYLENOL 325 MG TAB) Take two(2) tablets every four(4) to six(6) hours as needed for pain. No current facility-administered medications for this visit. Patient feels that medications have Tylenol PRN PREVIOUS TREATMENTS LASTING SIX WEEKS IN THE LAST SIX MONTHS Active conservative therapy lasting 6 weeks in the last six months (see below) 1. Physical therapy: No 2. Home exercise program after PT: No 3. Occupational therapy: No 4. A physician supervised home exercise program (HEP): No 5. Healthcare Liaison: No Passive conservative therapy lasting 6 weeks in the last six months (see below) 1. Medical devises: No 2. Acupuncture: No 3. Tens unit: No 4. Prescription pain medication: No 5. NSAIDS: No d/t HTN TREATMENTS: None Cleopatra Maier LPN September 17, 2022 9:43 AM EXAM: There were no vitals taken for this visit. No acute distress noted, patient alert and oriented X's 3. Resistive testing proximal and distal in the upper and the lower extremeties show 5/5 strength. DTR's are symmetrical in the upper and the lower extremeties (absent left ankle DTR). Nerve root tension signs: Negative. Lungs: Clear IMPRESSION: Radicular syndrome of left lower extremity (primary encounter diagnosis) Spinal stenosis of lumbar region with neurogenic claudication Seen in 2019 with a radicular syndrome which resolved after LESI L 5-S1. PLAN: Discussed the above findings and potential options with the patient. She had good response to LESI at L 5-S1 in 2020. She has CCS L 3-4 and L 4-5 she also had left isded L 5-S1 DDD and has residual numbness in left lateral foot but no motor defcit. Can heel toe walk. No nightime awakening. Pain in LEFT buttock with lumbar extension at 15 seconds / resolves with flexion. Suggest: - LESI at L 5-S1 (left paramedian) with sedation. The above exam has been completed by me and the pertinent and negative systems have been updated. I spent a total of 40 minutes on the date of the service which included preparing to see the patient, [id number] patient care, completing clinical documentation, obtaining and/or reviewing separately obtained history, performing a medically appropriate examination, counseling and educating the patient/family/caregiver, ordering medications, tests, or procedures, communicating with other HCPs (not separately reported), independently interpreting results (not separately reported), and communicating results to the patient/family/caregiver. Hussein Miller MD [facility] 09-17-2022 Miscellaneous Notes Lumbar BERHANE L5-S1 DM, -DL Miller 10/25 documented in this encounter [facility] 09-17-2022 History of Present illness Narrative Ms. Clemons a 71 year old female returns today for follow up of low back pain, she states that symptoms are slightly worse. Pt requesting another TFESI. PAIN: Pain Yes. Location: low back pain , rates pain a 3 on a pain scale of 1-10. Patient describes pain as aching, duration to the present time occuring daily. Pt c/o numbness in left foot. Pt has no pain when sitting, pain increases with activity. MEDICATIONS: Medications reviewed and verified. Current Outpatient Medications Medication Sig Multivitamin capsule Take 1 capsule by mouth once daily. calcium carbonate/vitamin D3 (CALCIUM + D ORAL) Take by mouth once daily. cyanocobalamin, vitamin B-12, (VITAMIN B12 ORAL) Take by mouth once daily. gabapentin (NEURONTIN) 100 mg capsule 1 cap at bedtime for 3 days. Increase by 1 cap every 3 days until you a re on 3 caps at bedtime acetaminophen(TYLENOL 325 MG TAB) Take two(2) tablets every four(4) to six(6) hours as needed for pain. No current facility-administered medications for this visit. Patient feels that medications have Tylenol PRN PREVIOUS TREATMENTS LASTING SIX WEEKS IN THE LAST SIX MONTHS Active conservative therapy lasting 6 weeks in the last six months (see below) 1. Physical therapy: No 2. Home exercise program after PT: No 3. Occupational therapy: No 4. A physician supervised home exercise program (HEP): No 5. Healthcare Liaison: No Passive conservative therapy lasting 6 weeks in the last six months (see below) 1. Medical devises: No 2. Acupuncture: No 3. Tens unit: No 4. Prescription pain medication: No 5. NSAIDS: No d/t HTN TREATMENTS: None Cleopatra Maier LPN September 17, 2022 9:43 AM EXAM: There were no vitals taken for this visit. No acute distress noted, patient alert and oriented X's 3. Resistive testing proximal and distal in the upper and the lower extremeties show 5/5 strength. DTR's are symmetrical in the upper and the lower extremeties (absent left ankle DTR). Nerve root tension signs: Negative. Lungs: Clear IMPRESSION: Radicular syndrome of left lower extremity (primary encounter diagnosis) Spinal stenosis of lumbar region with neurogenic claudication Seen in 2019 with a radicular syndrome which resolved after LESI L 5-S1. PLAN: Discussed the above findings and potential options with the patient. She had good response to LESI at L 5-S1 in 2019. She has CCS L 3-4 and L 4-5 she also had left isded L 5-S1 DDD and has residual numbness in left lateral foot but no motor defcit. Can heel toe walk. No nightime awakening. Pain in LEFT buttock with lumbar extension at 15 seconds / resolves with flexion. Suggest: - LESI at L 5-S1 (left paramedian) with sedation. The above exam has been completed by me and the pertinent and negative systems have been updated. I spent a total of 40 minutes on the date of the service which included preparing to see the patient, [id number] patient care, completing clinical documentation, obtaining and/or reviewing separately obtained history, performing a medically appropriate examination, counseling and educating the patient/family/caregiver, ordering medications, tests, or procedures, communicating with other HCPs (not separately reported), independently interpreting results (not separately reported), and communicating results to the patient/family/caregiver. Hussein Miller MD documented in this encounter [facility] 09-16-2022 Note Send Summary: Discharge Summary Providers: Provider RoleProvider Name Maverick Weller, Fide Bernabe Nurse Cornelio, Minal Carrasco, Alina Kelly Note Recipients: Alina Reece MD Discharge: Summary: Admission Date: .14-Sep-2022 21:34:00 Discharge Date: 16-Sep-2022 Attending Physician at Discharge: dr lobo Admission Reason: SBO(1) Final Discharge Diagnoses: Abdominal pain, Diarrhea Procedures: none Condition at Discharge: satisfactory Disposition at Discharge: home Vital Signs: T PRBPMAPSpO2 [id number]/6696% Date/Time09/16 7: 7: 7: 7: 7:49 Range(36C - 36.8C ) (81 - 102 ) (16 - 18 ) (136 - 172 )/ (66 - 95 ) (91% - 96% ) Date: Weight/Scale Type:Height: 15-Sep-2022 01:3162.7 kg / yjo916.4 cm Physical Exam: General Appearance: AAO x 3, not in acute distress Skin: skin color, texture, turgor normal; no suspicious rashes or lesions Eyes : PERRL, EOM's intact, conjunctiva pink ENT: no oral thrush, no pharyngeal erythema or exudates Neck: no JVD, no lymphadenopathy Respiratory: lungs clear to auscultation; no wheezing, rhonchi, or crackles Heart: RRR without murmur, gallop, or rubs, no ectopy Abdomen: Nondistended, positive bowel sounds, soft, nontender Extremities: no edema Peripheral pulses: normal and present x 4 extremities Neuro: alert, coherent and conversant, no focal motor deficits Hospital Course: 71-year-old female with a past medical history of colectomy, recurrent small bowel obstructions, and hypertension who presented to the emergency room for vomiting. Patient was found to have a recurrent small bowel obstruction. I will admit to the inpatient medical service with vital signs monitoring. I will make the patient NPO. IV fluids normal saline at rate of 75 cc/hour. Antiemetics and pain control. Consult general surgery. Because patient is n.p.o., I will hold the lisinopril and replace that with hydralazine 10 mg IV every 6 hours as needed. SCDs for DVT prophylaxis Pepcid for GI prophylaxis Full code Discharge Information: and Continuing Care: Lab Results - Pending: None Radiology Results - Pending: None Discharge Instructions: Activity: activity as tolerated. May shower.. Nutrition/Diet: resume normal diet, special diet Special Diet: cardiac Additional Orders: Additional Instructions: discharge plan resume home medications follow up with dr person within two weeks or as needed post hospitalziation follow up with primary care physician crater two weeks post discharge call 911 or go to nearest ED if symptoms worsen/persist encourage low fiber, low fat diet encourage plenty of water intake Follow Up Appointments: Follow-Up Appointment 01: Physician/Dept/Service: pcp Reason for Referral: post hospitalization Call to Schedule in: 2 weeks Follow-Up Appointment 02: Physician/Dept/Service: dr person Reason for Referral: as needed Discharge Medications: Home Medication losartan 25 mg oral tablet - 1 tab(s) orally once a day PRN Medication DNR Status: Code StatusCode Status order at time of discharge: Full Code Electronic Signatures: Minal Antony (TOLL BRIDGE OPERATOR-GARDEN TRACTOR MECHANIC) (Signed 16-Sep-2022 09:51) Authored: Send Summary, Summary Content, Ongoing Care, DNR Status, Note Completion Last Updated: 16-Sep-2022 09:51 by Minal Antony (TOLL BRIDGE OPERATOR-GARDEN TRACTOR MECHANIC) References: 1. Data Referenced From Consult-Surgery 15-Sep-2022 09:04 [facility] 09-15-2022 Note History of Present I llness: HPI: SERENA CLEMONS is a 71 year old Female Who presented to the emergency room for vomiting and abdominal pain. On presentation, blood pressure 157/77, heart rate 67, respirate 18, afebrile, saturation O2 97% on room air. Blood work-up came back grossly within normal limits. CT scan of the abdomen and pelvis showed recurrent small bowel obstruction. Patient was given in the emergency room Zofran and IV fluids and then admitted to the medical service for further investigation management. Patient has a history of recurrent small bowel obstructions. Her last 1 was on November 2020. She did fine after that. Then yesterday suddenly and at rest she started experiencing severe nausea associated with recurrent episodes of nonbloody vomiting. She also did have epigastric discomfort. Did not have any diarrhea or subjective fever or chills. Her last bowel movement was the day before. No change in her diet. No change in her medications. No edema or chest pain or palpitations Review of Systems: 10 systems were reviewed and were negative except for those noted in the history of present illness. Past medical history: Recurrent small bowel obstructions, hypertension Past surgical history: Colectomy cholecystectomy Social history: Nonsmoker, no alcohol abuse Family history: Lung cancer, CVA, hypertension Comorbidities: Comorbidites: Comorbid Conditionshypertension Allergies: Amoxil: Rash Keflex: Rash Pork: Unknown Lovenox: Unknown Medications Prior to Admission: Admission Medication Reconciliation has not been completed for this patient. Objective: Objective Information: T PRBPMAPSpO2 [id number]/9596% Date/Time09/15 1: 1: 1: 1: 1:21 Range(36.5C - 36.7C ) (67 - 102 ) (18 - 18 ) (157 - 170 )/ (68 - 95 ) (96% - 97% ) Pain reported at 09/15 1:21: 0 = None Physical Exam by System: Constitutional: awake/alert/oriented x3, not in acute distress, Eyes: PERRL, EOMI, clear sclera ENMT: NG tube in place Head/Neck: neck supple, no apparent injury, no JVD, no lymphadenopathy, trachea midline Respiratory/Thorax: patent airways, clear to auscultation bilaterally, no crackles or wheezing or rhonchi Cardiovascular: Regular, rate and rhythm, no murmurs, 2+ equal pulses of the extremities Gastrointestinal: nondistended, positive bowel sounds, soft, non-tender, no rebound tenderness or guarding, no masses palpable, no organomegaly Extremities: no edema Neurological: intact senses, motor, response and reflexes, normal strength, babinski negative Psychological: Appropriate mood and behavior Skin: warm, no rashes Recent Lab Results: Results: CBC: 09/14/2022 22:10 \ Hgb / \ 14.3 / WBC Plt 10.0 316 / Hct \ / 44.1 \ RBC: 5.21 H MCV: 85 Neutrophil %: 87.9 CMP: 09/14/2022 22:10 NA+ Cl- BUN / 141 104 10 / Glucose 138 H K+ HCO3- Creat \ 3.7 26 1.00 \ \ T Bili / \ 1.0 / AST x ---- x ALT 16 x ---- x 15 / Alk P \ / 92 \ Calcium : 9.6 Anion Gap : 15 Albumin : 4.4 T Protein : 7.4 Radiology Results: Results: Impression: Enteric tube noted in satisfactory position. Mild small bowel dilatation and additional findings as detailed. Xray Abdomen AP View [Sep 15 2022 12:58AM] Impression: Xray Abdomen AP View [Sep 15 2022 12:20AM] Assessment and Plan: Assessment: 71-year-old female with a past medical history of colectomy, recurrent small bowel obstructions, and hypertension who presented to the emergency room for vomiting. Patient was found to have a recurrent small bowel obstruction. I will admit to the inpatient medical service with vital signs monitoring. I will make the patient NPO. IV fluids normal saline at rate of 75 cc/hour. Antiemetics and pain control. Consult general surgery. Because patient is n.p.o., I will hold the lisinopril and replace that with hydralazine 10 mg IV every 6 hours as needed. SCDs for DVT prophylaxis Pepcid for GI prophylaxis Full code (This note was generated with voice recognition software and may contain errors including spelling, grammar, syntax and misrecognition of what was dictated, that are not fully corrected) Electronic Signatures: Maverick Jackson) (Signed 15-Sep-2022 03:34) Authored: History of Present Illness, Comorbidities, Allergies, Medications Prior to Admission, Objective, Assessment and Plan, Note Completion Last Updated: 15-Sep-2022 03:34 by Maverick Jackson) [facility] 08-06-2022 History of Present illness Narrative Patient is here for evaluation of abdominal pain and nausea.Reports that her symptoms have been present for the last 1 week. In addition to the abdominal pain and nausea sensation she also has urinary frequency. Denies dysuria.Plan: Urinalysis did not show any significant abnormalities. We will send for culture. will check for liver pathologies. zofran for nausea. could be viral infection as well.follow up in a week if no improvement in symptoms. [facility] Work [facility]: 01-12-2022 History of Present illness Narrative 71 YOF presents for acute visit.UTI symptoms, feels like she might have a UTI coming on, no urgency, feels pressure, no pain/burning with urination. No fever. She has been seen multiple times in the past 2 months for UTI symptoms, she was treated once with abx, she has not had a positive culture. IO UA negative for UTI today, will send for culture.Her BP is elevated today, I offered to start medication for this as it has been elevated at most visits, she endorses its is usually <130/80 at home, she will let me know if she wants to start HTN medication [facility] Work Phone: documented as of this encounter (statuses as of 09/17/2022) [facility]03[facility]2018 History of Past illness Narrative* Problem Noted Date Resolved Date Encounter for imaging study to confirm nasogastric (NG) tube placement 12/23/2017 12/23/2017 Abdominal distention 12/23/2017 12/23/2017 Other postoperative infection 06/04/2007 documented as of this encounter (statuses as of 09/17/2022) [facility] History of Past illness Narrative* Problem Noted Date Resolved Date Encounter for imaging study to confirm nasogastric (NG) tube placement 12/23/2017 12/23/2017 Abdominal distention 12/23/2017 12/23/2017 Other postoperative infection 06/04/2007 documented as of this encounter (statuses as of 10/26/2022) [facility] History of Past illness Narrative* Problem Noted Date Resolved Date Encounter for imaging study to confirm nasogastric (NG) tube placement 12/23/2017 12/23/2017 Abdominal distention 12/23/2017 12/23/2017 Other postoperative infection 06/04/2007 documented as of this encounter (statuses as of 10/28/2022) [facility] History of Present illness NarrativePatient presents to the office today to Establish with Urinary Frequency and Dysuria x 2 MO. No Positive Urine Cultures. No incontinence. LUTs are chronic and mild. Denies Hematuria.. Nocturia x1.. Caffeine does worsen LUTs.. No medications for LUTs..No Hx of UTI's. Hx of Kidney Stones. Staghorn Stone 15 years ago. Patient has no large Colon. (removed 14 years ago)[id number] DO Work Phone: [phone] History of Present illness NarrativePatient presents to the office today to Establish with Urinary Frequency and Dysuria x 2 MO. No Positive Urine Cultures. No incontinence. LUTs are chronic and mild. Denies Hematuria.. Nocturia x1.. Caffeine does worsen LUTs.. No medications for LUTs..No Hx of UTI's. Hx of Kidney Stones. Staghorn Stone 15 years ago. Patient has no large Colon. 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 * UTI SYMPTOMS: Urgency, frequency, no burning, no pain, no flank pain for 3 days. She endorses it feels like a uti is coming on . No fever, no other symptoms. Endorses drinking plenty of fluids. * No other concerns. [facility] Work Phone: History of Present illness Narrative* [facility] * ? retinal hemorrrhage * visual changes for 2 months * Fxhx * brother has high bp * no castellanos * no cp * no papitations * no problemswith exericse * has some LBP and ccf and getting epidural [facility] Work Phone: History of Present illness Narrative* had sbo * had ng and saw gen surgery * had colectomy 15 + years ago * total colectomy does not have colostomy now * CT abd pelvis * only showed sbo x 3 over 10 years * almost normal * diet usaul * last bm today * normal * no blood * no n/v * sharp pain b/w breast * with more belching * took prilosec this am * and pt states memory is poor * will do JOSIE and return if abn will adm moca and determine w/u and treatment [facility] Work Phone: Hospital Discharge instructions* Activity:activity as tolerated. May shower. * Additional Orders:Additional Instructions: discharge planresume home medicationsfollow up with dr person within two weeks or as needed post hospitalziationfollow up with primary care physician carter two weeks post dischargecall 911 or go to nearest ED if symptoms worsen/persistencourage low fiber, low fat diet encourage plenty of water intake * Call Provider If:Breathing faster than normal. Breathing harder than normal or having retractions. Fever of 100.4 F (38 C) or higher. Temperature is greater than 102 degrees. Chills. Drinking less than normal. Not being able to go 4-6 hours between albuterol treatments. Urinating less than normal, over 1 day. Urinating less than 4 times per day. Acting very sleepy and difficult to awaken. Vomiting (throwing up) and not able to eat or drink for 12 hours. 3 or more loose, watery bowel movements in 24 hours (diarrhea). Any new concerning symptoms. * Follow Up Appointment 1:Physician/Dept/Service: Dr Smalls for Referral: post hospitalizationCall to Schedule in: 2 weeksScheduled Date/Time: 24-Sep-2022 14:00Location: [address] [address]Phone Number: [phone] * Follow Up Appointment 2:Physician/Dept/Service: Dr Griffith for Referral: as neededLocation: [address] [address]Phone Number: [phone] [facility] Summary Purpose Family History No Family History Records FoundUnknown Family Member Name Dates Details Family history of lung cance r: Mother(V16.1, Z80.1) Status:Active Family history of colonic po lyps: Father(V18.51, Z83.71) Status:Active Family history of cerebrovas cular accident (CVA): Brother(V17.1, Z82.3) Status:Active Family history of hypertensi on: Brother(V17.49, Z82.49) Status:Active Unknown Family Member Name Dates Details Family history of lung cance r: Mother(V16.1, Z80.1) Status:Active Family history of colonic po lyps: Father(V18.51, Z83.71) Status:Active Family history of cerebrovas cular accident (CVA): Brother(V17.1, Z82.3) Status:Active Family history of hypertensi on: Brother(V17.49, Z82.49) Status:Active Unknown Family Member Name Dates Details Family history of lung cance r: Mother(V16.1, Z80.1) Status:Active Family history of colonic po lyps: Father(V18.51, Z83.71) Status:Active Family history of cerebrovas cular accident (CVA): Brother(V17.1, Z82.3) Status:Active Family history of hypertensi on: Brother(V17.49, Z82.49) Status:Active Unknown Family Member Name Dates Details Family history of lung cance r: Mother(V16.1, Z80.1) Status:Active Family history of colonic po lyps: Father(V18.51, Z83.71) Status:Active Family history of cerebrovas cular accident (CVA): Brother(V17.1, Z82.3) Status:Active Family history of hypertensi on: Brother(V17.49, Z82.49) Status:Active Unknown Family Member Name Dates Details Family history of hypertensi on: Brother(V17.49, Z82.49) Status:Active Family history of cerebrovas cular accident (CVA): Brother(V17.1, Z82.3) Status:Active Family history of colonic po lyps: Father(V18.51, Z83.71) Status:Active Family history of lung cance r: Mother(V16.1, Z80.1) Status:Active Unknown Family Member Name Dates Details Family history of lung cance r: Mother(V16.1, Z80.1) Status:Active Family history of colonic po lyps: Father(V18.51, Z83.71) Status:Active Family history of cerebrovas cular accident (CVA): Brother(V17.1, Z82.3) Status:Active Family history of hypertensi on: Brother(V17.49, Z82.49) Status:Active Unknown Family Member Name Dates Details Family history of lung cance r: Mother(V16.1, Z80.1) Status:Active Family history of colonic po lyps: Father(V18.51, Z83.71) Status:Active Family history of cerebrovas cular accident (CVA): Brother(V17.1, Z82.3) Status:Active Family history of hypertensi on: Brother(V17.49, Z82.49) Status:Active Unknown Family Member Name Dates Details Family history of lung cance r: Mother(V16.1, Z80.1) Status:Active Family history of colonic po lyps: Father(V18.51, Z83.71) Status:Active Family history of cerebrovas cular accident (CVA): Brother(V17.1, Z82.3) Status:Active Family history of hypertensi on: Brother(V17.49, Z82.49) Status:Active Unknown Family Member Name Dates Details Family history of hypertensi on: Brother(V17.49, Z82.49) Status:Active Family history of cerebrovas cular accident (CVA): Brother(V17.1, Z82.3) Status:Active Family history of colonic po lyps: Father(V18.51, Z83.71) Status:Active Family history of lung cance r: Mother(V16.1, Z80.1) Status:Active Unknown Family Member Name Dates Details Family history of lung cance r: Mother(V16.1, Z80.1) Status:Active Family history of colonic po lyps: Father(V18.51, Z83.71) Status:Active Family history of cerebrovas cular accident (CVA): Brother(V17.1, Z82.3) Status:Active Family history of hypertensi on: Brother(V17.49, Z82.49) Status:Active Unknown Family Member Name Dates Details Family history of lung cance r: Mother(V16.1, Z80.1) Status:Active Family history of colonic po lyps: Father(V18.51, Z83.71) Status:Active Family history of cerebrovas cular accident (CVA): Brother(V17.1, Z82.3) Status:Active Family history of hypertensi on: Brother(V17.49, Z82.49) Status:Active Unknown Family Member Name Dates Details Family history of lung cance r: Mother(V16.1, Z80.1) Status:Active Family history of colonic po lyps: Father(V18.51, Z83.71) Status:Active Family history of cerebrovas cular accident (CVA): Brother(V17.1, Z82.3) Status:Active Family history of hypertensi on: Brother(V17.49, Z82.49) Status:Active Unknown Family Member Name Dates Details Family history of hypertensi on: Brother(V17.49, Z82.49) Status:Active Family history of cerebrovas cular accident (CVA): Brother(V17.1, Z82.3) Status:Active Family history of colonic po lyps: Father(V18.51, Z83.71) Status:Active Family history of lung cance r: Mother(V16.1, Z80.1) Status:Active Unknown Family Member Name Dates Details Family history of lung cance r: Mother(V16.1, Z80.1) Status:Active Family history of colonic po lyps: Father(V18.51, Z83.71) Status:Active Family history of cerebrovas cular accident (CVA): Brother(V17.1, Z82.3) Status:Active Family history of hypertensi on: Brother(V17.49, Z82.49) Status:Active Unknown Family Member Name Dates Details Family history of lung cance r: Mother(V16.1, Z80.1) Status:Active Family history of colonic po lyps: Father(V18.51, Z83.71) Status:Active Family history of cerebrovas cular accident (CVA): Brother(V17.1, Z82.3) Status:Active Family history of hypertensi on: Brother(V17.49, Z82.49) Status:Active Unknown Family Member Name Dates Details Family history of lung cance r: Mother(V16.1, Z80.1) Status:Active Family history of colonic po lyps: Father(V18.51, Z83.71) Status:Active Family history of cerebrovas cular accident (CVA): Brother(V17.1, Z82.3) Status:Active Family history of hypertensi on: Brother(V17.49, Z82.49) Status:Active Unknown Family Member Name Dates Details Family history of lung cance r: Mother(V16.1, Z80.1) Status:Active Family history of colonic po lyps: Father(V18.51, Z83.71) Status:Active Family history of cerebrovas cular accident (CVA): Brother(V17.1, Z82.3) Status:Active Family history of hypertensi on: Brother(V17.49, Z82.49) Status:Active Unknown Family Member Name Dates Details Family history of lung cance r: Mother(V16.1, Z80.1) Status:Active Family history of colonic po lyps: Father(V18.51, Z83.71) Status:Active Family history of cerebrovas cular accident (CVA): Brother(V17.1, Z82.3) Status:Active Family history of hypertensi on: Brother(V17.49, Z82.49) Status:Active Unknown Family Member Name Dates Details Family history of hypertensi on: Brother(V17.49, Z82.49) Status:Active Family history of cerebrovas cular accident (CVA): Brother(V17.1, Z82.3) Status:Active Family history of colonic po lyps: Father(V18.51, Z83.71) Status:Active Family history of lung cance r: Mother(V16.1, Z80.1) Status:Active Unknown Family Member Name Dates Details Family history of lung cance r: Mother(V16.1, Z80.1) Status:Active Family history of colonic po lyps: Father(V18.51, Z83.71) Status:Active Family history of cerebrovas cular accident (CVA): Brother(V17.1, Z82.3) Status:Active Family history of hypertensi on: Brother(V17.49, Z82.49) Status:Active Unknown Family Member Name Dates Details Family history of hypertensi on: Brother(V17.49, Z82.49) Status:Active Family history of cerebrovas cular accident (CVA): Brother(V17.1, Z82.3) Status:Active Family history of colonic po lyps: Father(V18.51, Z83.71) Status:Active Family history of lung cance r: Mother(V16.1, Z80.1) Status:Active Unknown Family Member Name Dates Details Family history of lung cance r: Mother(V16.1, Z80.1) Status:Active Family history of colonic po lyps: Father(V18.51, Z83.71) Status:Active Family history of cerebrovas cular accident (CVA): Brother(V17.1, Z82.3) Status:Active Family history of hypertensi on: Brother(V17.49, Z82.49) Status:Active Unknown Family Member Name Dates Details Family history of lung cance r: Mother(V16.1, Z80.1) Status:Active Family history of colonic po lyps: Father(V18.51, Z83.71) Status:Active Family history of cerebrovas cular accident (CVA): Brother(V17.1, Z82.3) Status:Active Family history of hypertensi on: Brother(V17.49, Z82.49) Status:Active Unknown Family Member Name Dates Details Family history of lung cance r: Mother(V16.1, Z80.1) Status:Active Family history of colonic po lyps: Father(V18.51, Z83.71) Status:Active Family history of cerebrovas cular accident (CVA): Brother(V17.1, Z82.3) Status:Active Family history of hypertensi on: Brother(V17.49, Z82.49) Status:Active Unknown Family Member Name Dates Details Family history of lung cance r: Mother(V16.1, Z80.1) Status:Active Family history of colonic po lyps: Father(V18.51, Z83.71) Status:Active Family history of cerebrovas cular accident (CVA): Brother(V17.1, Z82.3) Status:Active Family history of hypertensi on: Brother(V17.49, Z82.49) Status:Active Unknown Family Member Name Dates Details Family history of hypertensi on: Brother(V17.49, Z82.49) Status:Active Family history of colonic po lyps: Father(V18.51, Z83.71) Status:Active Family history of lung cance r: Mother(V16.1, Z80.1) Status:Active Unknown Family Member Name Dates Details Family history of lung cance r: Mother(V16.1, Z80.1) Status:Active Family history of colonic po lyps: Father(V18.51, Z83.71) Status:Active Family history of hypertensi on: Brother(V17.49, Z82.49) Status:Active Unknown Family Member Name Dates Details Family history of lung cance r: Mother(V16.1, Z80.1) Status:Active Family history of colonic po lyps: Father(V18.51, Z83.71) Status:Active Family history of hypertensi on: Brother(V17.49, Z82.49) Status:Active Unknown Family Member Name Dates Details Family history of lung cance r: Mother(V16.1, Z80.1) Status:Active Family history of colonic po lyps: Father(V18.51, Z83.71) Status:Active Family history of hypertensi on: Brother(V17.49, Z82.49) Status:Active Unknown Family Member Name Dates Details Family history of lung cance r: Mother(V16.1, Z80.1) Status:Active Family history of colonic po lyps: Father(V18.51, Z83.71) Status:Active Family history of hypertensi on: Brother(V17.49, Z82.49) Status:Active Unknown Family Member Name Dates Details Family history of lung cance r: Mother(V16.1, Z80.1) Status:Active Family history of colonic po lyps: Father(V18.51, Z83.71) Status:Active Family history of hypertensi on: Brother(V17.49, Z82.49) Status:Active Unknown Family Member Name Dates Details Family history of lung cance r: Mother(V16.1, Z80.1) Status:Active Family history of colonic po lyps: Father(V18.51, Z83.71) Status:Active Family history of hypertensi on: Brother(V17.49, Z82.49) Status:Active Advance Directives No Advanced Directives Records FoundDocuments on File Type Date Recorded Patient Italian Tutor Expl anation Advance Directives and Livin g Will 12/16/2018 1:00 PM Documents on File Type Date Recorded Patient Italian Tutor Expl anation Advance Directives and Livin g Will 03/20/2020 7:51 AM Documents on File Type Date Recorded Patient Italian Tutor Expl anation Advance Directives and Livin g Will 03/20/2020 7:51 AM Documents on File Type Date Recorded Patient Italian Tutor Expl anation Advance Directives and Livin g Will 12/16/2018 1:00 PM History of Present Illness * Elise Diamond, COMPRESSION MOLDING MACHINE TENDER - 12/18/2018 1:00 PM EDT [facility] DAILY TREATMENT NOTE Today's Date 12/18/2018 Patient Name: Serena Clemons Date of : 1950 Current Visit #: Authorized Visits: 10 Case Name: therapy Primary OA of B hip; OA of spine with radiculopathy History: Symptoms: rapidly improved Functional Diagnosis: No diagnosis found. Clinical Information: Subjective:Pt states she had significant relief from the long axis distraction yesterday, rates it as almost having no pain. Pt was very excited because she can't remember how long it has been since she didn't have that pain. Objective Completed core stability, RLE long axis distraction and cupping over abdominal scars to improve pt function. Treatments: Physical Therapy Exercise Log - 12/18/18 1017 OTHER Precautions/Contraindications Cannot lay totally flat yet Notes left at 10:58 Therapeutic Exercise (02069) Intervention supine hip flexor stretch with PNF Parameters 10 x10 Intervention Manual long axis distraction R hip Parameters 30 x5 Intervention Attemtped inferior hip joint mob Parameters D/C due to pain Intervention Clamshells Parameters x15 B Intervention Bridging Parameters x10 Intervention Hip ABD Parameters GTB 5 x15 Intervention Hip ADD Parameters GTB 5 x15 Intervention Pt education on progressing to laying flat Parameters 6' Manual Therapy (93646) Intervention Cupping anterior abdominal wall around scars Parameters 10' focus on middle superior scar today, dynamic and static Goals: Physical Therapy Ortho Goals: 1. Patient reports their primary goal is to be able to learn how to control pain. 2. Patient will safely, correctly, and independently demonstrate the ability to perform a progressive HEP to achieve maximal rehabilitation potential and prevent this condition from recurring. 3. Patient will demonstrate decreased muscle facilitation of anterior abdominal wall and hip flexors in order to be able to sit up straight. 4. Patient will demonstrate increased core and hip stabilization in order to be able to walk for 10minutes with 0-2/10 pain. 5. Patient will demonstrate 5/5 hip flexor strength in order to be able to negotiate a flight of stairs. Patient Education: Verbal HEP with patient demonstrated understanding. Assessment: Patient had an expected response to treatment. Pt came during the wrong treatment time and wanted to be seen anyways, pt was doubled with another patient and was made aware that manual duration would be decreased. Pt was fine with this since her sxs have decreased. Progress towards goals exceeding expectations. Plan for Next Visit: Continue per POC. Elise Diamond PTA STATE LICENSE, [id number] in this encounter* Rosalind Deras, PT - 01/06/2019 1:45 PM EDT [facility] DAILY TREATMENT NOTE Today's Date 01/06/2019 Patient Name: Serena Clemons Date of : 1950 Current Visit #: 6 Authorized Visits: 10 Case Name: therapy Primary OA of B hip; OA of spine with radiculopathy History: Pre-Treatment Pain Scale: 1 Symptoms: gradually improved Functional Diagnosis: SNOMED CT(R) 1. Other secondary osteoarthritis of right hip OSTEOARTHRITIS OF HIP Clinical Information: Subjective: Patient reports that after her pulls on her leg she is good to go until she sits down, then her hip starts to hurt again. Patient says he only needs to pull on it for maybe 20-30 seconds and then she is good to go and has no pain. Patient reports she is ready to be discharged from physical therapy and has no questions regarding her HEP. Objective Hip IR: R:16 L:20 Hip ER: R:30 L:34 Hip ABD: R:4+/5 L:4+/5 Hip Flexion: R:4+/5 L:4+/5 Treatments: Physical Therapy Exercise Log - 01/06/19 1345 OTHER Precautions/Contraindications Cannot lay totally flat yet Notes CHRIS Boyer; 07/17; 1:45 - 2:10 Therapeutic Exercise (13456) Intervention PT education on D/C planning and measurements 20' Parameters -- Intervention -- Parameters -- Intervention -- Manual Therapy (58326) Intervention -- Parameters Manual long axis distraction R hip, 30 with belt Add more exercises? Yes Manual Therapy (54687) Intervention -- Parameters -- PT Treatment Times Therex Total Time 20 Manual Therapy Total Time 1 Direct Treatment Time 21 Total Treatment Time 25 Goals: Physical Therapy Ortho Goals: 1. Patient reports their primary goal is to be able to learn how to control pain. 2. Patient will safely, correctly, and independently demonstrate the ability to perform a progressive HEP to achieve maximal rehabilitation potential and prevent this condition from recurring. 3. Patient will demonstrate decreased muscle facilitation of anterior abdominal wall and hip flexors in order to be able to sit up straight. 4. Patient will demonstrate increased core and hip stabilization in order to be able to walk for 10minutes with 0-2/10 pain. 5. Patient will demonstrate 5/5 hip flexor strength in order to be able to negotiate a flight of stairs. Patient Education: Quality of movement and HEP Modification with patient verbalized understanding. Post-Treatment Pain Scale: 1 Assessment: Patient had an expected response to treatment. Patient demonstrates understanding of HEP and asked to be discharged from formal physical therapy. Skilled Intervention demonstrated by modifications of treatment per exercise log including assessment of patient's response and safety interventions per exercise log. Progress towards goals as expected. Plan for Next Visit: Discharge Rosalind Deras PT State License, [id number] in this encounter* Rosalind Deras, PT - 09/14/2019 11:30 AM EST [facility] Evaluation Today's Date 09/14/2019 Patient Name: Serena Clemons Date of : 1950 Case Name: Therapy DDD (degenerative disc disease), lumbar Functional Diagnosis: 1. DDD (degenerative disc disease), lumbar Clinical Information: Subjective History of Present Illness Chief Complaint/ Mechanism of Injury: Patient states some days she can barely walk and other days she is limping around all day long. Patient states she will get numbness in her R leg and it feels numb and she has pain and if her pulls her leg it relieves it a little bit. Patient sates she has fallen twice due to her dog, once last winter and then about 2 months ago in the yard and she watched the back of her head on her back. Patient was getting numbness down her leg on the R side for weeks at a time. Previous Imaging: X-ray Status: Varies. Pain Scale: Average Pain: 0/10 Pain at highest: 4/10 (numbness/tingling) Aggravating factors: walking, stairs Easing factors: pulling on her leg, no pain crawling up her steps Functional Status Functional Limitations: limited mobility, standing and recent decline in level of ADL Premorbid Functional Level: Patient reported Current Functional Level: None Daily activity scale: low active Prior level of function: low active Sleep Assessment Sleep disturbance: no Sleep Disturbance Red Flags: None Barriers to Care: None Fall risk screening Fallen 2 or more times in the last 12 months: Yes Injured as a result of a fall in the last 12 months: Yes Social History Occupation: retired Home environment: house [employer], social, or cultural considerations to be made aware of before starting treatment: No Lumbar Spine Gait: antalgic and decreased chao Posture: accentuated lordosis Asymmetrics: Lateral shift: right Trunk AROM: Movement Loss % of Loss Description Flexion 75% Extension 75% Side Gliding R 75% B Rotation Side Gliding L Dermatomes Sensation: grossly intact Muscle Strength: Hip Flexion Right: 4 Left: 4 Knee extension Right: 4+ Left: 4+ Ankle DF Right: 4+ Left: 4+ Ankle PF Right: 4+ Left: 4+ Knee flexion Right: 4 Left: 4 Hip ABD Right: 4 Left: 4 Special Tests Slump Right: no Slump R Left: no Slump L SLR Right: no SLR R Left: no SLR L Test for piriformis syndrome Right: no Piriformis Syndrome R Left: no Piriformis syndrome L SIJ dysfunction: no SIJ Dysfunction Joint Mobility Thoracic Spine: hypomobility Lumbar Spine: Hypomobility Palpation/ Tenderness: Increased facilitation and tenderness of B PSIS, R ES, R QL Treatments: Physical Therapy Exercise Log - 09/14/19 1213 OTHER Notes Rosalind 11:30-12:10 Therapeutic Exercise (65157) Intervention Scifit (A) Parameters DN to Lumbar spine (A) Intervention STM to Lumbar spine (A) Parameters Shuttle squat (A) Intervention SLR (A) PT Treatment Times Total Treatment Time 40 Treatment Plan: Frequency of Visits: twice per week Duration: 6 weeks Interventions: Therapeutic Exercise, Neuromuscular Re-Education, Manual Therapy, Therapeutic/ Functional Activities, Self Care, Hot/Cold Pack, Electrical Stimulation, Ultrasound, Mechanical Traction,Vasopneumatic and dry needling. Rehab Potential: good Goals: Physical Therapy Ortho Goals: 1. Patient reports their primary goal is to be able to decrease her back pain. 2. Patient will safely, correctly, and independently demonstrate the ability to perform a progressive HEP to achieve maximal rehabilitation potential and prevent this condition from recurring. 3. Patient will demonstrate increased core/hip strength in order to be able to walk for 30 minutes with 0-2/10 pain. 4. Patient will demonstrate increased muscle mobility of R ES in order to be able to sleep through the night. 5. Patient will demonstrate 5/5 hip flexor strength in order to be able to negotiate a flight of stairs without crawling up them. IE date: 09/14/2019 Progress report due: 10/26/19 Recert due: visit # 8-12 Patient Education provided: Education on patient diagnosis, physical therapist POC, and HEP to begin until next visit. Clinical Impression: Patient would benefit from skilled physical therapy in order to be able to increase lumbar ROM, increase strength, improve neuromuscular control, increase muscle mobility, and improve joint stabilization in order to return to normal ADLs. Rosalind Deras PT State License, [id number] documented in this encounter* Idalia Escalante, JASVIR - 09/21/2019 4:00 PM EST Pt discussed with PT that she is not having any pain currently. Pt is afraid that if she completes therapy today she will increase pain, she requested to abstain from therapy today secondary to min sx's. Pt's chart will be left open for 30 days and she was instructed to contact clinic if her sx's return. Otherwise she will continue with HEP. documented in this encounter* Ines Chamberlain, GARDEN TRACTOR MECHANIC - 10/19/2019 4:58 PM EST [facility] [address] [facility] [address] [facility] [id number] Chief Complaint Patient presents with Lower Back - Follow-up Serena Clemons returns to the office today for follow up on her lumbar back and right leg pain. She states that her back and leg pain is doing much better. She states that she only went to physical therapy a couple of times because her back was actually feeling better and she didn't want to make it any worse. She states that they did give her some home therapy exercises for her lower back and she has continued to do those at home. Overall she states that she is very happy with how she is feeling. She is able to do the things she enjoys such as cuddling with her grandkids. The patient's past medical history, surgical history, social history, family history, medications and allergies were reviewed with the patient today and are available in the chart for further review. ROS: Review of Systems Constitutional: Negative for activity change and fatigue. HENT: Negative for congestion, hearing loss and trouble swallowing. Eyes: Negative for visual disturbance. Respiratory: Negative for chest tightness and shortness of breath. Cardiovascular: Negative for chest pain and palpitations. Gastrointestinal: Negative for abdominal pain, diarrhea, nausea and vomiting. Endocrine: Negative for polydipsia, polyphagia and polyuria. Genitourinary: Negative for decreased urine volume, difficulty urinating and hematuria. Musculoskeletal: Negative for arthralgias, joint swelling and myalgias. Skin: Negative for color change, rash and wound. Allergic/Immunologic: Negative for immunocompromised state. Neurological: Negative for dizziness, weakness, light-headedness and numbness. Hematological: Does not bruise/bleed easily. Psychiatric/Behavioral: Negative for confusion and sleep disturbance. The patient is not nervous/anxious. PE: Physical Exam Constitutional: She is oriented to person, place, and time. She appears well- developed and well-nourished. HENT: Head: Normocephalic. Eyes: Pupils are equal, round, and reactive to light. Neck: Normal range of motion. Neck supple. Cardiovascular: Normal rate and regular rhythm. Pulmonary/Chest: Effort normal and breath sounds normal. Abdominal: Soft. Bowel sounds are normal. Musculoskeletal: Normal range of motion. Neurological: She is alert and oriented to person, place, and time. Skin: Skin is warm and dry. Imaging: No new imaging, reviewed from 09/07/19 Assessment/Plan: After examination and discussion with the patient, I am thrilled that she is doingso well. I encouraged her to continue the home exercise therapy program. She is to continue to use OTC pain relievers as needed. I would be happy to see her back as needed. The patient verbalizes unde rstanding and is in agreement with the treatment plan. documented in this encounter* Rosalind Deras, PT - 12/16/2018 1:00 PM EDT [facility] DAILY TREATMENT NOTE Today's Date 12/16/2018 Patient Name: Serena Clemons Date of : 1950 Current Visit #: 1 Authorized Visits: 10 Case Name: therapy Primary OA of B hip; OA of spine with radiculopathy History: Pre-Treatment Pain Scale: 5 Symptoms: gradually improved Functional Diagnosis: SNOMED CT(R) 1. Primary osteoarthritis of right hip OSTEOARTHRITIS OF HIP 2. Osteoarthritis of spine with radiculopathy, lumbar region DISORDER OF JOINT OF SPINE Clinical Information: Subjective: Patient reports she continues to have the sharp pain in her R hip and it tends to happen when she pivots a certain way. Objective Treatments: Physical Therapy Exercise Log - 12/16/186 OTHER Precautions/Contraindications Cannot lay totally flat yet Therapeutic Exercise (99185) Intervention supine hip flexor stretch with PNF Parameters 10 x10 Intervention Manual long axis distraction R hip Parameters 30 x5 Intervention Attemtped inferior hip joint mob Parameters D/C due to pain Intervention Clamshells Parameters x15 B Intervention Bridging Parameters x10 Intervention Hip ABD Parameters GTB 5 x15 Intervention Hip ADD Parameters GTB 5 x15 Intervention Pt education on progressing to laying flat Parameters 6' Manual Therapy (83032) Intervention Cupping anterior abdominal wall around scars Parameters 10' focus on middle superior scar today, dynamic and static PT Treatment Times Therex Total Time 30 Manual Therapy Total Time 10 Direct Treatment Time 40 Total Treatment Time 40 Goals: Physical Therapy Ortho Goals: 1. Patient reports their primary goal is to be able to learn how to control pain. 2. Patient will safely, correctly, and independently demonstrate the ability to perform a progressive HEP to achieve maximal rehabilitation potential and prevent this condition from recurring. 3. Patient will demonstrate decreased muscle facilitation of anterior abdominal wall and hip flexors in order to be able to sit up straight. 4. Patient will demonstrate increased core and hip stabilization in order to be able to walk for 10minutes with 0-2/10 pain. 5. Patient will demonstrate 5/5 hip flexor strength in order to be able to negotiate a flight of stairs. Patient Education: Quality of movement, HEP Modification and Caregiver Education with patient demonstrated understanding. Post-Treatment Pain Scale: 4 Assessment: Patient had an expected response to treatment. Skilled Intervention demonstrated by modifications of treatment per exercise log including increased intensity, assessment of patient's response and modalities as indicated and safety interventions per exercise log. Progress towards goals as expected. Plan for Next Visit: Treatment Visit with focus on continuing to increase R hip muscle mobility andABD strength. Rosalind Deras, CHRIS State License, [id number] in this encounter* Elise Diamond, COMPRESSION MOLDING MACHINE TENDER - 12/25/2018 1:00 PM EDT [facility] DAILY TREATMENT NOTE Today's Date 12/25/2018 Patient Name: Serena Clemons Date of : 1950 Current Visit #: 7 Authorized Visits: 12 Case Name: therapy Primary OA of B hip; OA of spine with radiculopathy History: Pre-Treatment Pain Scale: 0 Symptoms: completely resolved Functional Diagnosis: SNOMED CT(R) 1. Other secondary osteoarthritis of right hip OSTEOARTHRITIS OF HIP Clinical Information: Subjective: Pt states her pulls on her RLE every morning and she is pain free now. The relief only lasts a day though so she has to have it done every morning. Pt reports the cupping has beenbeneficial, she has more sensation than she has ever had. Pt states she is limited on time today and only wants to do exercises. Objective Treatments: Physical Therapy Exercise Log - 12/25/18 0323 OTHER Precautions/Contraindications Cannot lay totally flat yet Notes 1:03-1:28 Therapeutic Exercise ([id number]) Intervention supine hip flexor stretch with PNF (N/A) Intervention S/L Hip Abd, RTB, 2x10 Parameters Hip Add, bolster, 5 x10 Intervention Clamshells, x15, Zay, RTB Parameters Bridging 2x10, RTB Intervention slant board gastroc stretch, 20 x2 Parameters Shuttle B Squat, 37# 2x10 Intervention Standing HS stretch, 20 x2 on 6 inch step Manual Therapy (73309) Intervention Cupping anterior abdominal wall around scars, 6 min (HELD) Parameters Manual long axis distraction R hip, 30 x5 with belt (HELD) PT Treatment Times Therex Total Time 25 Direct Treatment Time 25 Total Treatment Time 25 Progressed LE strengthening with shuttle squats and included additional LE stretches for gastroc and HS to decrease tightness. Goals: Physical Therapy Ortho Goals: 1. Patient reports their primary goal is to be able to learn how to control pain. 2. Patient will safely, correctly, and independently demonstrate the ability to perform a progressive HEP to achieve maximal rehabilitation potential and prevent this condition from recurring. 3. Patient will demonstrate decreased muscle facilitation of anterior abdominal wall and hip flexors in order to be able to sit up straight. 4. Patient will demonstrate increased core and hip stabilization in order to be able to walk for 10minutes with 0-2/10 pain. 5. Patient will demonstrate 5/5 hip flexor strength in order to be able to negotiate a flight of stairs. Patient Education: Verbal HEP with patient demonstrated understanding. Post-Treatment Pain Scale: 0 Assessment: Patient had an expected response to treatment. Held on cupping and long axis distraction per pt request d/t sxs being resolved and not having timetoday. Pt feels S/L clamshells may be bothering her L hip d/t the rotation. Pt states the shuttle squats are working her the way she needs to improve. Skilled Intervention demonstrated by modifications of treatment per exercise log including increased volume and safety interventions per exercise log. Progress towards goals as expected. Plan for Next Visit: Continue per POC. Resume IASTM and LAD as needed. Elise Diamond PTA STATE LICENSE, [id number] in this encounter* Viau, Martha Alina, MD - 03/06/2020 3:22 PM EDT [facility] [address]) [facility] [address] [facility] [phone] Serena Clemons is a 69 y.o. female being seen today, 03/06/20, Chief Complaint Patient presents with Lower Back - Pain, Follow-up [chief complaint] chronic intermittent low back pain flareup beginning approximately 2 weeks ago with radiculopathy HPI Dictation: Seen the case for last 2 years or more she is had periodic flareups of back pain this current episode is the worst with numbness involving the plantar aspect of her left foot and pain along the lateral right calf aggravated all activities of daily living she is also noticed weakness in her left ankle as well which was not there prior to 2 weeks ago and presents today with a CT scanshowing severe degenerative changes with severe spinal stenosis at the 3 4 and 4 5 levels she indicates that she can walk in from her car to a store but asked to use a grocery cart to lean forward onto ambulate further case her symptoms are essentially unchanged from when they began 2 weeks ago [hpi] Physical Exam Dictation: [PE] on exam she has diminished Achilles reflex on the left weakness of plantarflexion left ankle however there is negative straight leg raising decreased sensation light touch lateral right calf andplantar aspect of her left foot there is decreased lumbar motion in all planes Assessment and Plan Dictation: [AP] history of chronic back pain with CT findings consistent with severe spinal stenosis new onsetof left-sided weakness plantar left foot left leg discomfort is noted as well in light of her neurologic findings I am recommending an MRI with recommendations to follow I have reviewed all relevant histories, medications, allergies, and problem list items with Serena Clemons during this visit. Review of Systems Constitutional: Negative for chills and fever. HENT: Negative for congestion. Respiratory: Negative for shortness of breath. Cardiovascular: Negative for chest pain. Gastrointestinal: Negative for diarrhea, nausea and vomiting. Neurological: Negative for headaches. Psychiatric/Behavioral: Negative for behavioral problems. Ht 5' Wt 68 kg (150 lb) BMI 29.29 kg/m Imaging: No results found. 1. Spinal stenosis of lumbar region with neurogenic claudication MR Lumbar Spine Without Contrast 2. Low back pain, unspecified back pain laterality, unspecified chronicity, unspecified whether sciatica present Ambulatory referral to Orthopedics MR Lumbar Spine Without Contrast Return for post mri. Martha Bella MD documented in this encounter* Sincere Allison Mary, GARDEN TRACTOR MECHANIC - 11/05/2018 7:50 AM EST Subjective: Serena Clemons is a 68 y.o. female here for Pain of the Lower Back . Hip Pain Patient complains of right hip pain. Onset of the symptoms was several months ago. Inciting event: none. The patient reports the hip pain is worse with weight bearing, is aggravated by walking and isworse after period of inactivity. Associated symptoms: none, crepitus sensation. Aggravating symptoms include: any weight bearing, going up and down stairs, lateral movements, rising after sitting, standing and walking. Patient has had no prior hip problems. Previous visits for this problem: none. Evaluation to date: none. Treatment to date: none. No groin pain. Lumbar spine: She complains of right leg pain and weakness. Sometimes right leg will go out from under her. The following portions of the patient's history were reviewed and updated as appropriate: allergies, current medications, past surgical history and problem list. Review of Systems Constitutional: Negative for chills, diaphoresis and fever. Respiratory: Negative for shortness of breath. Cardiovascular: Negative for chest pain, palpitations and leg swelling. Genitourinary: Negative for frequency and urgency. Musculoskeletal: Positive for arthralgias, gait problem and joint swelling. Skin: Negative for color change, rash and wound. Neurological: Negative for dizziness, syncope and weakness. Psychiatric/Behavioral: Negative for agitation. The patient is not nervous/anxious. Objective: Ht 5' Wt 68 kg (150 lb) BMI 29.29 kg/m Physical Exam Constitutional: She is oriented to person, place, and time. She appears well- developed and well-nourished. HENT: Head: Normocephalic and atraumatic. Eyes: Pupils are equal, round, and reactive to light. Neck: Normal range of motion. Neck supple. Cardiovascular: Normal rate and regular rhythm. Pulmonary/Chest: Effort normal and breath sounds normal. Abdominal: Soft. Bowel sounds are normal. Musculoskeletal: She exhibits tenderness. Neurological: She is alert and oriented to person, place, and time. She has normal reflexes. Skin: Skin is warm and dry. Imaging from this visit: Assessment/Plan: SNOMED CT(R) 1. Low back pain, unspecified back pain laterality, unspecified chronicity, with sciatica presence unspecified LOW BACK PAIN XR Lumbar Spine 2-3 Views (Standard) 2. Primary osteoarthritis of right hip OSTEOARTHRITIS OF HIP 3. Osteoarthritis of spine with radiculopathy, lumbar region DISORDER OF JOINT OF SPINE No follow-ups on file. Allison Post CNP 11/05/2018 in this encounter* Ines Chamberlain CNP - 09/08/2019 12:11 PM EST Serena Clemons 1950 CC: 68 y.o. is a she with right leg pain. Chief Complaint Patient presents with Right Leg - Pain . HPI: Hip Pain Patient complains of right hip pain. Onset of the symptoms was several years ago. She states that about a year ago she was seen by another provider and was sent to physical therapy for her hip and her back. She states that it helped a little but she has continued to have pain in the right lower back that runs down her hip into her leg. She does have numbness and tingling that travel to her foot and toes. She describes the pain as sharp, shooting and feels like a fire is running down the right leg. She has tried over the counter pain medicine which hasn't been of any benefit. She likes to remain active but is finding it more difficult to walk long distances. She states that the pain and numbness subsides when she is able to get off of her feet. The patient's past medical history, surgical history, social history, family history, medications and allergies were reviewed with the patient today and are available in the chart for further review. PMH: Allergies Allergen Reactions Enoxaparin Sodium Other (See Comments) Pork allergy Heparin (Bovine) Allergic to pork Mesalamine Denies allery to ASACOL 06/23/2007 Pork Extract Cephalexin Rash No current outpatient medications on file. Past Medical History: Diagnosis Date Chorea childhood Heart murmur Sarcoidosis Past Surgical History: Procedure Laterality Date BOWEL RESECTION large intestine removed SECTION, CLASSIC KIDNEY STONE SURGERY Right Social History Socioeconomic History Marital status: Spouse name: Not on file Number of children: Not on file Years of education: Not on file Highest education level: Not on file Occupational History Not on file Social Needs Financial resource strain: Not on file Food insecurity Worry: Not on file Inability: Not on file Transportation needs Medical: Not on file Non-medical: Not on file Tobacco Use Smoking status: Former Smoker Last attempt to quit: 11/05/1993 Years since quittin.8 Smokeless tobacco: Never Used Substance and Sexual Activity Alcohol use: Never Frequency: Never Drug use: Not on file Sexual activity: Not on file Lifestyle Physical activity Days per week: Not on file Minutes per session: Not on file Stress: Not on file Relationships Social connections Talks on phone: Not on file Gets together: Not on file Attends evangelical service: Not on file Active member of club or organization: Not on file Attends meetings of clubs or organizations: Not on file Relationship status: Not on file Other Topics Concern Not on file Social History Narrative Not on file ROS: Review of Systems Constitutional: Negative for activity change and fatigue. HENT: Negative for congestion, hearing loss and trouble swallowing. Eyes: Negative for visual disturbance. Respiratory: Negative for chest tightness and shortness of breath. Cardiovascular: Negative for chest pain and palpitations. Gastrointestinal: Negative for abdominal pain, diarrhea, nausea and vomiting. Endocrine: Negative for polydipsia, polyphagia and polyuria. Genitourinary: Negative for decreased urine volume, difficulty urinating and hematuria. Musculoskeletal: Positive for arthralgias, gait problem and myalgias. Negative for joint swelling. Skin: Negative for color change, rash and wound. Allergic/Immunologic: Negative for immunocompromised state. Neurological: Positive for numbness. Negative for dizziness, weakness and light-headedness. Hematological: Does not bruise/bleed easily. Psychiatric/Behavioral: Negative for confusion and sleep disturbance. The patient is not nervous/anxious. PE: Physical Exam Constitutional: She is oriented to person, place, and time. She appears well- developed and well-nourished. HENT: Head: Normocephalic. Eyes: Pupils are equal, round, and reactive to light. Neck: Normal range of motion. Neck supple. Cardiovascular: Normal rate and regular rhythm. Pulmonary/Chest: Effort normal and breath sounds normal. Abdominal: Soft. Bowel sounds are normal. Musculoskeletal: Lumbar back: She exhibits tenderness. Neurological: She is alert and oriented to person, place, and time. Skin: Skin is warm and dry. ORTHO: Right Hip Exam Tenderness The patient is experiencing tenderness in the posterior. Range of Motion The patient has normal right hip ROM. Muscle Strength Abduction: 4/5 Adduction: 4/5 Flexion: 4/5 Tests JULIO: positive Rachel: negative Other Erythema: absent Sensation: normal Pulse: present Imaging: Lumbar Mild dextroconvex scoliosis of the lumbar spine. No subluxation. No compression fractures. Moderate disc space narrowing throughout the lumbar spine Pelvis No displaced fractures in the pelvis. Mild osteoarthritis in both hips. Assessment/Plan: After examination and reviewing of the patient x-ray images, I informed the patient that the pain she is experienced in the right leg is coming from her lumbar spine. I explained to her that the first step in conservative treatment for lumbar spine degenerative disc disease is in fact a course of outpatient physical therapy. I explained to her that if there was no improvement with symptoms after the physical therapy I will then send her on for a neurosurgical consult. I would like to see the patient back in 6 weeks after her physical therapy. The patient verbalized understanding and is in agreement with the treatment plan. Diagnosis: Problem List Items Addressed This Visit None Visit Diagnoses DDD (degenerative disc disease), lumbar - Primary Relevant Orders Ambulatory ref to Therapy (PT/OT/ST) Follow Up: documented in this encounter* Elise Diamond, COMPRESSION MOLDING MACHINE TENDER - 01/01/2019 1:00 PM EDT [facility] DAILY TREATMENT NOTE Today's Date 01/01/2019 Patient Name: Serena Clemons Date of : 1950 Current Visit #: 9 Authorized Visits: 12 Case Name: therapy Primary OA of B hip; OA of spine with radiculopathy History: Symptoms: gradually improved Functional Diagnosis: SNOMED CT(R) 1. Other secondary osteoarthritis of right hip OSTEOARTHRITIS OF HIP Clinical Information: Subjective: Pt states she was sore after last session but feels she is improving. Pt reports she tries to do her HEP when she isn't babysitting her grandson. Objective Completed cupping over abdominal scars per pt request since we haven't done it recently. Continued with hip strengthening as able and hip stretching/STM to improve function. Treatments: Physical Therapy Exercise Log - 01/01/19 1306 OTHER Precautions/Contraindications Cannot lay totally flat yet Notes 1:06-1:46 Therapeutic Exercise (42771) Intervention Eccentric hip ADD with manual resistance x10 Parameters Clamshells, x15, Zay, RTB Intervention Bridging x15, RTB Parameters Shuttle B Squat, 37# 2x10 Intervention Lazy butterfly 10 x5 Parameters -- Manual Therapy (34269) Intervention pin/stretch R hip ADD x10 Parameters Manual long axis distraction R hip, 30 x5 with belt Add more exercises? Yes Manual Therapy (74510) Intervention S/L piriformis STM 5 min Parameters IASTM dynamic cupping to abdominal scar, 10 min PT Treatment Times Therex Total Time 25 Manual Therapy Total Time 15 Direct Treatment Time 40 Total Treatment Time 40 Goals: Physical Therapy Ortho Goals: 1. Patient reports their primary goal is to be able to learn how to control pain. 2. Patient will safely, correctly, and independently demonstrate the ability to perform a progressive HEP to achieve maximal rehabilitation potential and prevent this condition from recurring. 3. Patient will demonstrate decreased muscle facilitation of anterior abdominal wall and hip flexors in order to be able to sit up straight. 4. Patient will demonstrate increased core and hip stabilization in order to be able to walk for 10minutes with 0-2/10 pain. 5. Patient will demonstrate 5/5 hip flexor strength in order to be able to negotiate a flight of stairs. Patient Education: Verbal HEP with patient demonstrated understanding and verbalized understanding. Assessment: Patient had an expected response to treatment. TTP+ R piriformis. Pt reports relief after session. Pt displays decreased ROM with LLE hip mobilityvs RLE. Progress towards goals as expected. Plan for Next Visit: Treatment Visit with focus on Improving function and decreasing RLE sxs Elise Diamond PTA STATE LICENSE, [id number] in this encounter Assessments Diagnosis Osteoarthritis of spine with radiculopathy, lumbar region Other secondary osteoarthritis of right hip Diagnosis Other secondary osteoarthritis of right hip- Primary Diagnosis DDD (degenerative disc disease), lumbar Degeneration of lumbar or lumbosacral intervertebral disc Diagnosis DDD (degenerative disc disease), lumbar Degeneration of lumbar or lumbosacral intervertebral disc Diagnosis Low back pain, unspecified back pain laterality, unspecified chronicity, unspecified whether sciatica present Spinal stenosis of lumbar region with neurogenic claudication Diagnosis Primary osteoarthritis of right hip Osteoarthritis of spine with radiculopathy, lumbar region Diagnosis Other secondary osteoarthritis of right hip- Primary Diagnosis Low back pain, unspecified back pain laterality, unspecified chronicity, unspecified whether sciatica present Spinal stenosis of lumbar region with neurogenic claudication Diagnosis Low back pain, unspecified back pain laterality, unspecified chronicity, with sciatica presence unspecified- Primary Primary osteoarthritis of right hip Osteoarthritis of spine with radiculopathy, lumbar region Diagnosis Other secondary osteoarthritis of right hip- Primary Reason for Referral Status Reason Specialty Diagnoses / Procedures Referre d By Contact Referred To Contact Closed Radiology Diagnoses Low back pain, unspecified back pain laterality, unspecified chronicity, unspecified whether sciatica present Spinal stenosis of lumbar region with neurogenic claudication Procedures MR Lumbar Spine Without Contrast Viau, Martha Chanel MD [address] [place] [address] Status Reason Specialty Diagnoses / Procedures Referred By Contact Referred To Contact Authorized Patient Preference Physical Therapy / Rehabilitation Diagnoses Primary osteoarthritis of right hip Osteoarthritis of spine with radiculopathy, lumbar region Allison Post CNP [address] [place] [address] Status Reason Specialty Diagnoses / Procedures Re ferred By Contact Referred To Contact New Request Radiology Diagnoses Low back pain, unspecified back pain laterality, unspecified chronicity, unspecified whether sciatica present Spinal stenosis of lumbar region with neurogenic claudication Procedures MR Lumbar Spine Without Contrast Viau, Martha Chanel MD [address] [place] [address] Status Reason Specialty Diagnoses / Procedures Referred By Contact Referred To Contact Authorized Patient Preference Physical Therapy / Rehabilitation Diagnoses DDD (degenerative disc disease), lumbar Chamberlain, Ines Pushpa, GARDEN TRACTOR MECHANIC [address] [place] [address] [facility] [address] [address] [place] [address] Specialty Diagnoses / Procedures Referred By Contac t Referred To Contact Radiology Diagnoses Menopause Procedures XR DEXA bone density Marcelle Hedrick MD Referral ID Status Reason Start Date Expiration Date Visits Requested Visits Authorized [id number] Authorized Perform Procedure 06/10/2023 12/07/2023 1 1 Specialty Diagnoses / Procedures Referred By Contac t Referred To Contact Radiology Diagnoses Encounter for screening mammogram for breast cancer Procedures BI mammo bilateral screening tomosynthesis Marcelle Hedrick MD Referral ID Status Reason Start Date Expiration Date Visits Requested Visits Authorized [id number] Authorized Perform Procedure 06/10/2023 12/07/2023 1 1 Chief Complaint uti sx for 3 dayspt c/o frequent urination x 1 day.Establishing with Urinary FrequencyEstablishing with Urinary Frequencypt. here to discuss BP.CYSTO* UTI sx * burning with urination * dysuria * urine frequecy Hospital d/c f/u. Medications Administered Section Inactive Administered Medications - up to 3 most recent administrations Medication Order MAR Action Action Date Dose Rate Site NaCl 0.9% iv infusion 30 mL/hr, INTRAVENOUS, CONTINUOUS, Starting on Fri10/25/22 at 0900, Until Fri10/25/22 at 1156, Preprocedure New Bag/Syringe/Bottle 10/25/2022 8:45 AM EST 30 mL/hr 30 mL/hr Additional Source Comments INFORMATION SOURCE (unrecogn ized section and content) DATE CREATED AUTHOR AUTHOR'S ORGANIZ ATION 12/13/2018 [facility] DATE CREATED AUTHOR AUTHOR'S ORGANIZ ATION 05/16/2019 [facility] DATE CREATED AUTHOR AUTHOR'S ORGANIZ ATION 03/06/2020 [facility] DATE CREATED AUTHOR AUTHOR'S ORGANIZ ATION 03/21/2020 [facility] DATE CREATED AUTHOR AUTHOR'S ORGANIZ ATION 04/24/2020 [facility] DATE CREATED AUTHOR AUTHOR'S ORGANIZ ATION 09/28/2022 [facility] DATE CREATED AUTHOR AUTHOR'S ORGANIZ ATION 09/28/2022 [facility] DATE CREATED AUTHOR AUTHOR'S ORGANIZ ATION 11/09/2022 [facility] DATE CREATED AUTHOR AUTHOR'S ORGANIZ ATION 01/11/2023 [facility] DATE CREATED AUTHOR AUTHOR'S ORGANIZ ATION 06/15/2023 [facility] DATE CREATED AUTHOR AUTHOR'S ORGANIZ ATION 06/22/2023 [facility] DATE CREATED AUTHOR AUTHOR'S ORGANIZ ATION 10/11/2023 [facility] Reason for Visit (unrecogniz ed section and content) Status Reason Specialty Diagnoses / Procedures Referred By Contact Referred To Contact Authorized Patient Preference Physical Therapy / Rehabilitation Diagnoses Primary osteoarthritis of right hip Osteoarthritis of spine with radiculopathy, lumbar region Allison Post, GARDEN TRACTOR MECHANIC [address] [place] [address] Status Reason Specialty Diagnoses / Procedures Referred By Contact Referred To Contact Authorized Patient Preference Physical Therapy / Rehabilitation Diagnoses Primary osteoarthritis of right hip Osteoarthritis of spine with radiculopathy, lumbar region Allison Post, KIRBY [address] [place] [address] Reason Comments Physical Therapy DDD (degenerative di sc disease), lumbar Status Reason Specialty Diagnoses / Procedures Referred By Contact Referred To Contact Authorized Patient Preference Physical Therapy / Rehabilitation Diagnoses DDD (degenerative disc disease), lumbar Ines Chamberlain, GARDEN TRACTOR MECHANIC [address] [address] [facility] [address] [place] [address] [place] [address] Reason Comments Follow-up Status Reason Specialty Diagnoses / Procedures Referre d By Contact Referred To Contact Closed Radiology Diagnoses Low back pain, unspecified back pain laterality, unspecified chronicity, unspecified whether sciatica present Spinal stenosis of lumbar region with neurogenic claudication Procedures MR Lumbar Spine Without Contrast ChelsiuMartha MD [address] [place] [address] Reason Comments Pain Follow-up Status Reason Specialty Diagnoses / Procedures Referred By Contact Referred To Contact Closed Orthopedic Surgery Diagnoses Low back pain, unspecified back pain laterality, unspecified chronicity, unspecified whether sciatica present Gayatri Thomas, GARDEN TRACTOR MECHANIC [address] [place] [address] Mratha Bella MD [address] [place] [address] Reason Comments Pain Reason Comments Follow Up Reason Comments Injections Reason Comments Post Op Reason Comments Medicare Annual Wellness Visit Subsequen t 1 year. <item><item><item><item><item> Privacy Markings (unrecogniz ed section and content) Section Author: Sheri Bull PROHIBITION ON REDISCLOSURE OF CONFIDENTIAL INFORMATION This notice accompanies a disclosure of information concerning a client made to you with the consent of such client. Section Author: Sheri Bull PROHIBITION ON REDISCLOSURE OF CONFIDENTIAL INFORMATION This notice accompanies a disclosure of information concerning a client made to you with the consent of such client. Section Author: Sheri Bull PROHIBITION ON REDISCLOSURE OF CONFIDENTIAL INFORMATION This notice accompanies a disclosure of information concerning a client made to you with the consent of such client. Section Author: Sheri Bull PROHIBITION ON REDISCLOSURE OF CONFIDENTIAL INFORMATION This notice accompanies a disclosure of information concerning a client made to you with the consent of such client. Section Author: Sheri Bull PROHIBITION ON REDISCLOSURE OF CONFIDENTIAL INFORMATION This notice accompanies a disclosure of information concerning a client made to you with the consent of such client. Source Comments (unrecognize d section and content) In the event this informatio n is protected by the Federal Confidentiality of Alcohol and Drug Abuse Patient Records regulations: The Federal rules restrict any use of the information to criminally investigate or prosecute any alcohol or drug abuse patient.[facility] Center[facility] the event this information is protected by the Federal Confidentiality of Alcohol and Drug Abuse Patient Records regulations: The Federal rules restrict any use of the information to criminally investigate or prosecute any alcohol or drug abuse patient.[facility] Center[facility] the event this information is protected by the Federal Confidentiality of Alcohol and Drug Abuse Patient Records regulations: The Federal rules restrict any use of the information to criminally investigate or prosecute any alcohol or drug abuse patient.[facility] Center[facility] the event this information is protected by the Federal Confidentiality of Alcohol and Drug Abuse Patient Records regulations: The Federal rules restrict any use of the information to criminally investigate or prosecute any alcohol or drug abuse patient.[facility] Care Teams (unrecognized sec tion and content) Polyethylene Combiner Relationship Specialty Start Date End Date Alina Reece MD [address] [place] [phone] PCP - General 11/18/05 Polyethylene Combiner Relationship Specialty Start Date End Date Alina Reece MD [address] [place] [phone] PCP - General 11/18/05 Polyethylene Combiner Relationship Specialty Start Date End Date Alina Reece MD [address] [place] [address] PCP - General 11/18/05 Polyethylene Combiner Relationship Specialty Start Date End Date Alina Reece MD [facility] [facility], [place] [address] [id number] PCP - General 06/06/20 Marcelle Hedrick MD PCP - [facility] Attributed Provider 04/05/22 Continuous Active and Recently Administ ered Medications (unrecognized section and content) PRN Medication Order 10/23/2022 10/24/2022 10/25/2022 dexAMETHasone sodium phosphate injection (DECADRON) (CANCELED) NEEDED, Starting on 10/25/22 at 0950, Until Fri10/25/22 at 1009, Intraprocedure 0950 (Given - Provid er: Hussein Miller MD) iohexol IV injection (OMNIPAQUE 300) (CANCELED) NEEDED, Starting on Fri10/25/22 at 0942, Until Fri10/25/22 at 1009, Intraprocedure 0942 (Given - Provid er: Hussein Miller MD) lidocaine 10 mg/mL (1 %) injection (XYLOCAINE) (CANCELED) NEEDED, Starting on 10/25/22 at 0942, Until 10/25/22 at 1009, Intraprocedure 0942 (Given - Provid er: Hussein Miller MD) triamcinolone acetonide injection (KeNALog 40) (CANCELED) NEEDED, Starting on Fri10/25/22 at 0943, Until Fri10/25/22 at 1009, Intraprocedure 0943 (Given - Provid er: Hussein Miller MD) FOR RECORDS PERTAINING TO PATIENTS WHO ARE OR HAVE BEEN ENROLLED IN A CHEMICAL DEPENDENCY/SUBSTANCEABUSE PROGRAM, SOME INFORMATION MAY BE OMITTED. This clinical summary was aggregated from multiple sources. Caution should be exercised in using it in the provision of clinical care. This summary normalizes information from multiple sources, and as a consequence, information in this document may materially change the coding, format and clinical context of patient data. In addition, data may be omitted in some cases. CLINICAL DECISIONS SHOULD BE BASED ON THE PRIMARY CLINICAL RECORDS. [facility] [employer] [facility]. provides no warranty or guarantee of the accuracy or completeness of information in this document.
[2023-12-03 08:26] LABS: Hemoglobin 11.6 g/dL (12.0-15.0); Mean Corp Hgb Conc 31.4 g/dL (32-36); Mean Corpuscular Hgb 26.2 pg (27.0-32.0); Mean Corpuscular Volume 83.5 fL (81-99); Mean Platelet Vol. 10.9 fl (6.2-12.0); Platelet Count 291 K/mm3 (150-450); RBC Distribution Width CV 13.9 % (11.6-14.6); RBC Distribution Width SD 42.2 fl (35.1-43.9); Red Blood Count 4.43 M/mm3 (4.2-5.4)
[2023-12-03 08:51] LABS: ALB/GLOB Ratio 0.7 RATIO (0.9-2.4); AST(SGOT) 19 U/L (15-37); Alanine Aminotransfer ALT/SGPT 19 U/L (13-56); Alkaline Phosphatase 72 U/L (45-117); Anion Gap 3 (5-15); BUN 13 mg/dL (7-18); BUN/Creat Ratio 13.2 RATIO (10-20); Calcium,Total 9.9 mg/dL (8.5-10.1); Chloride 110 mmol/L (98-107); Creatinine, Serum 0.98 mg/dL (0.55-1.02); EST Glomerular Filtration Rate 59 mL/min (>60); Est Glom Filt Rate - Afr Amer 71 mL/min (>60); Globulin 4.2 g/dL (2.2-4.2); Glucose 97 mg/dL (74-106); Potassium 4.1 mmol/L (3.5-5.1); Protein, Total 7.2 g/dL (6.4-8.2); Sodium Level 140 mmol/L (136-145)
== END 2023-12-03 07:49 | disposition home or self-care (01) ==
LOC: MEDOUTP 07:50
PROVIDERS: PCP Family Medicine; Referring Provider Nurse Practitioner Family; Visit Provider Nurse Practitioner Family
DX: N39.0 Urinary tract infection, site not specified (principal); B96.1 Klebsiella pneumoniae [K. pneumoniae] as the cause of diseases classified elsewhere; A77.40 Ehrlichiosis, unspecified
CPT/HCPCS: 36592; 80053; 85027; A4216

== ENCOUNTER 2023-12-10 08:17 | Outpatient (CLI) | payer MEDICARE, OTHER, SELFPAY ==
--- OUTSIDE RECORDS SUMMARY | 2023-12-10 08:44 | XMS RPT_ITS | CCD ---
Author Name Unknown Address [address] [place] [address] Organization [facility] Care Team Providers Care Exploration Geologist Name Role Phone Alina Reece Primary Care Provider [phone] Allison Post Admitting Unavailable Allison Post Attending [...] BELLA Attending Unavailable GAYATRI THOMAS Referring Unavailable ALINA REECE Primary Care Unavailable INES CHAMBERLAIN Admitting Unavailable ROSALIND DERAS Attending Unavailable INES CHAMBERLAIN Referring Unavailable REECEALINA DUNCAN Primary Care Unavailable CHAMBERLAININES COPPOLA Admitting Unavailable IDALIA ESCALANTE Attending Unavailable INES CHAMBERLAIN Referring Unavailable ALINA REECE Primary Care Unavailable MARTHA BELLA Attending Unavailable MARTHA BELLA Referring Unavailable ALINA REECE Primary Care Unavailable Alina Reece Primary Care Provider [phone] Alina Reece Unavailable Unavailable Unavailable Alina Reece Unavailable Carleen Marques Unavailable Unavailable Carleen Francisco Unavailable Unavailable Unavailable Unavailable Ross Cotter Unavailable Unavailable Sippey, Fide Unavailable Alejandro Lobo Unavailable Unavailab le FloridalmaMarcelle Unavailable Shanell COWART, Alina Kelly Primary Care Provider HUSSEIN MILLER Attending Unavailable REECE, ALINA LETICIA [...] Dr. Elizalde Attending Unavailable Floridalma, Dr. Marcelle Fernando Referring Unavailab le Reece, Dr. Alina Kelly Primary Care Unavailab le Sippey, Dr. Elizalde Attending Unavailable Reece, Dr. Alina Kelly Primary Care Unavailab le Lee II, Dr. Aubree Lopez Attending Unavai lable Lee II, Dr. Aubree Lopez Referring Unavai lable Reece, Dr. Alina Kelly Primary [facility] Unavailab le Sippey, Dr. Elizalde Attending Unavailable [...] Cephalexin; Translations: [Keflex] Drug Allergy 8 Rash [facility] (20 sources) Enoxaparin; Translations: [Unknown] Drug Allergy 8 Other (See Comments) [facility] (20 sources) heparin; Translations: [HEPARIN (BOVINE)] Drug Allergy 8 Other [facility] (20 sources) mesalamine; Translations: [MESALAMINE] Drug Allergy 5 Other [facility] (20 sources) pork allergenic extract; Translations: [PORK EXTRACT] Drug Allergy 2 [facility] (8 sources) heparin; Translations: [HEPARIN] Drug Allergy 8 Other [facility] (20 sources) Amoxicillin; Translations: [Amoxil] Drug Allergy Rash [facility] Work Phone: (20 sources) Enoxaparin; Translations: [Lovenox] Drug Allergy 8 Other, Unknown [facility] Work Phone: (20 sources) pork allergenic extract; Translations: [PORK] Drug Allergy 2 Unknown [facility] Work Phone: (20 sources) Other Allergy to substance (finding) Other [facility] Work Phone: (5 sources) Amoxicillin Drug Allergy Rash [facility] Medications Current Medications Medication Drug Class(es) [...] Body height 149.9 cm Marcelle Hedrick MD [facility] 06-10-2023 08:56-0400 Body mass index (BMI) [Ratio] 27.23 kg/m2 Marcelle Hedrick MD [facility] 06-10-2023 08:56-0400 Body weight 61.15 kg Marcelle Hedrick MD [facility] 06-10-2023 08:56-0400 Diastolic blood pressure 80 mm[Hg] Marcelle Hedrick MD [facility] 06-10-2023 08:56-0400 Heart rate 63 /min Marcelle Hedrick MD [facility] 06-10-2023 08:56-0400 SaO2% (BldA) [Mass fraction] 98 % Marcelle Hedrick MD [facility] 06-10-2023 08:56-0400 Systolic blood pressure 120 mm[Hg] Marcelle Hedrick MD [facility] 10-25-2022 11:25-0500 Diastolic blood pressure 67 mm[Hg] Hussein Miller MD Work Phone: [facility] 10-25-2022 11:25-0500 Heart rate 61 /min Hussein Miller MD Work Phone: [facility] 10-25-2022 11:25-0500 Respiratory rate 16 /min Hussein Miller MD Work Phone: [facility] 10-25-2022 11:25-0500 SaO2% (BldA) [Mass fraction] 96 % Hussein Miller MD Work Phone: [facility] 10-25-2022 11:25-0500 Systolic blood pressure 147 mm[Hg] Hussein Miller MD Work Phone: [facility] 10-25-2022 09:55-0500 Body temperature 97.81 [degF] Hussein Miller MD Work Phone: [facility] 10-24-2022 13:21-0500 Body height 149.86 cm Alina Reece Work Phone: [facility] Work Phone: 10-24-2022 13:21-0500 Body mass index (BMI) [Ratio] 29.08 kg/m2 Alina Reece Work Phone: [facility] Work Phone: 10-24-2022 13:21-0500 Body surface area Derived from formula 1.6 m2 Alina Reece Work Phone: [facility] Work Phone: 10-24-2022 13:21-0500 Body weight 65.32 kg Alina O Reece Work Phone: [facility] Work Phone: 10-24-2022 13:21-0500 Diastolic blood pressure 78 mm[Hg] Alina O Reece Work Phone: [facility] Work Phone: 10-24-2022 13:21-0500 Heart rate 77 /min Alina O Reece Work Phone: [facility] Work Phone: 10-24-2022 13:21-0500 Systolic blood pressure 126 mm[Hg] Alina O Reece Work Phone: [facility] Work Phone: 10-11-2022 10:37-0500 Body height 149.8 cm Alina O Reece Work Phone: [facility] Work Phone: 10-11-2022 10:37-0500 Body mass index (BMI) [Ratio] 29.37 kg/m2 Alina O Reece Work Phone: [facility] Work Phone: 10-11-2022 10:37-0500 Body surface area Derived from formula 1.61 m2 Alina O Reece Work Phone: [facility] Work Phone: 10-11-2022 10:37-0500 Body weight 65.9 kg Alina O Reece Work Phone: [facility] Work Phone: 10-11-2022 10:37-0500 Diastolic blood pressure 82 mm[Hg] Alina O Reece Work Phone: [facility] Work Phone: 10-11-2022 10:37-0500 Heart rate 73 /min Alina O Reece Work Phone: [facility] Work Phone: 10-11-2022 10:37-0500 Systolic blood pressure 118 mm[Hg] Alina O Reece Work Phone: [facility] Work Phone: 09-24-2022 14:01-0500 Body height 149.81 cm Alina O Reece Work Phone: [facility] Work Phone: 09-24-2022 14:01-0500 Body mass index (BMI) [Ratio] 29.63 kg/m2 Alina O Reece Work Phone: [facility] Work Phone: 09-24-2022 14:01-0500 Body surface area Derived from formula 1.62 m2 Alina O Reece Work Phone: [facility] Work Phone: 09-24-2022 14:01-0500 Body weight 66.49 kg Alina O Reece Work Phone: [facility] Work Phone: 09-24-2022 14:01-0500 Diastolic blood pressure 70 mm[Hg] Alina O Reece Work Phone: [facility] Work Phone: 09-24-2022 14:01-0500 Heart rate 74 /min Alina O Reece Work Phone: [facility] Work Phone: 09-24-2022 14:01-0500 Systolic blood pressure 126 mm[Hg] Alina O Reece Work Phone: [facility] Work Phone: 09-17-2022 09:33-0500 Body height 152.4 cm Hussein Miller MD Work Phone: [facility] 09-17-2022 09:33-0500 Body weight 62.6 kg Hussein Miller MD Work Phone: [facility] 09-17-2022 09:33-0500 Diastolic blood pressure 57 mm[Hg] Hussein Miller MD Work Phone: [facility] 09-17-2022 09:33-0500 Heart rate 57 /min Hussein Miller MD Work Phone: [facility] 09-17-2022 09:33-0500 Systolic blood pressure 145 mm[Hg] Hussein Miller MD Work Phone: [facility] 09-16-2022 09:49-0500 Body temperature 98.24 [degF] Alina Reece Other Phone: [facility] 09-16-2022 09:49-0500 Diastolic blood pressure 66 mm[Hg] Alina Reece Other Phone: [facility] 09-16-2022 09:49-0500 Heart rate 81 /min Alina Reece Other Phone: [facility] 09-16-2022 09:49-0500 Respiratory rate 17 /min Alina Reece Other Phone: [facility] 09-16-2022 09:49-0500 SaO2% (BldA) [Mass fraction] 96 % Alina Reece Other Phone: [facility] 09-16-2022 09:49-0500 Systolic blood pressure 159 mm[Hg] Alina Reece Other Phone: [facility] 08-12-2022 16:31-0500 Body height 149.8 cm Alina Reece Work Phone: [facility] Work Phone: 08-12-2022 16:31-0500 Body mass index (BMI) [Ratio] 2.95 kg/m2 Alina O Reece Work Phone: [facility] Work Phone: 08-12-2022 16:31-0500 Body surface area Derived from formula 0.61 m2 Alina O Reece Work Phone: [facility] Work Phone: 08-12-2022 16:31-0500 Body weight 6.62 kg Alina O Reece Work Phone: [facility] Work Phone: 08-12-2022 16:31-0500 Diastolic blood pressure 82 mm[Hg] Alina O Reece Work Phone: [facility] Work Phone: 08-12-2022 16:31-0500 Heart rate 83 /min Alina O Reece Work Phone: [facility] Work Phone: 08-12-2022 16:31-0500 Systolic blood pressure 118 mm[Hg] Alina O Reece Work Phone: [facility] Work Phone: 06-07-2022 08:39-0400 Body height 149.8 cm Alina O Reece Work Phone: [facility] Work Phone: 06-07-2022 08:39-0400 Body mass index (BMI) [Ratio] 31.25 kg/m2 Alina O Reece Work Phone: [facility] Work Phone: 06-07-2022 08:39-0400 Body surface area Derived from formula 1.65 m2 Alina O Reece Work Phone: [facility] Work Phone: 06-07-2022 08:39-0400 Body weight 70.12 kg Alina O Reece Work Phone: [facility] Work Phone: 06-07-2022 08:39-0400 Diastolic blood pressure 80 mm[Hg] Alina O Reece Work Phone: [facility] Work Phone: 06-07-2022 08:39-0400 Heart rate 64 /min Alina O Reece Work Phone: [facility] Work Phone: 06-07-2022 08:39-0400 Systolic blood pressure 124 mm[Hg] Alina O Reece Work Phone: [facility] Work Phone: 05-31-2022 09:15-0400 Body mass index (BMI) [Ratio] 31.1 kg/m2 Alina O Reece Work Phone: [facility] Work Phone: 05-31-2022 09:15-0400 Body surface area Derived from formula 1.65 m2 Alina O Reece Work Phone: [facility] Work Phone: 05-31-2022 09:15-0400 Body weight 69.85 kg Alina O Reece Work Phone: [facility] Work Phone: 05-23-2022 16:14-0400 Body height 149.86 cm Alina O Reece Work Phone: [facility] Work Phone: 05-23-2022 16:14-0400 Body mass index (BMI) [Ratio] 31.19 kg/m2 Alina O Reece Work Phone: [facility] Work Phone: 05-23-2022 16:14-0400 Body surface area Derived from formula 1.65 m2 Alina O Reece Work Phone: [facility] Work Phone: 05-23-2022 16:14-0400 Body weight 70.03 kg Alina O Reece Work Phone: [facility] Work Phone: 05-23-2022 16:14-0400 Diastolic blood pressure 90 mm[Hg] Alina O Reece Work Phone: [facility] Work Phone: 05-23-2022 16:14-0400 Heart rate 72 /min Alina O Reece Work Phone: [facility] Work Phone: 05-23-2022 16:14-0400 Systolic blood pressure 148 mm[Hg] Alina O Reece Work Phone: [facility] Work Phone: 04-29-2022 09:07-0400 Body mass index (BMI) [Ratio] 31.72 kg/m2 Alina O Reece Work Phone: [facility] Work Phone: 04-29-2022 09:07-0400 Body surface area Derived from formula 1.66 m2 Alina O Reece Work Phone: [facility] Work Phone: 04-29-2022 09:07-0400 Body weight 71.24 kg Alina O Reece Work Phone: [facility] Work Phone: 04-29-2022 09:07-0400 Diastolic blood pressure 101 mm[Hg] Alina O Reece Work Phone: [facility] Work Phone: 04-29-2022 09:07-0400 Heart rate 74 /min Alina O Reece Work Phone: [facility] Work Phone: 04-29-2022 09:07-0400 Systolic blood pressure 186 mm[Hg] Alina O Reece Work Phone: [facility] Work Phone: 04-23-2022 14:44-0400 Body height 149.86 cm Alina O Reece Work Phone: [facility] Work Phone: 04-23-2022 14:44-0400 Body mass index (BMI) [Ratio] 31.51 kg/m2 Alina O Reece Work Phone: [facility] Work Phone: 04-23-2022 14:44-0400 Body surface area Derived from formula 1.66 m2 Alina O Reece Work Phone: [facility] Work Phone: 04-23-2022 14:44-0400 Body weight 70.76 kg Alina O Reece Work Phone: [facility] Work Phone: 04-23-2022 14:44-0400 Diastolic blood pressure 80 mm[Hg] Alina O Reece Work Phone: [facility] Work Phone: 04-23-2022 14:44-0400 Heart rate 76 /min Alina O Reece Work Phone: [facility] Work Phone: 04-23-2022 14:44-0400 Systolic blood pressure 144 mm[Hg] Alina O Reece Work Phone: [facility] Work Phone: 03-14-2022 14:14-0400 Body height 149.86 cm Alina O Reece Work Phone: [facility] Work Phone: 03-14-2022 14:14-0400 Body mass index (BMI) [Ratio] 31.71 kg/m2 Alina O Reece Work Phone: [facility] Work Phone: 03-14-2022 14:14-0400 Body surface area Derived from formula 1.66 m2 Alina O Reece Work Phone: [facility] Work Phone: 03-14-2022 14:14-0400 Body temperature 97.8 [degF] Alina O Reece Work Phone: [facility] Work Phone: 03-14-2022 14:14-0400 Body weight 71.21 kg Alina O Reece Work Phone: [facility] Work Phone: 03-14-2022 14:14-0400 Diastolic blood pressure 82 mm[Hg] Alina O Reece Work Phone: [facility] Work Phone: 03-14-2022 14:14-0400 Heart rate 72 /min Alina O Reece Work Phone: [facility] Work Phone: 03-14-2022 14:14-0400 Systolic blood pressure 148 mm[Hg] Alina O Reece Work Phone: [facility] Work Phone: 03-05-2022 16:24-0400 Body height 154.9 cm Alina Reece Other Phone: [facility] 03-05-2022 16:24-0400 Body temperature 97.7 [degF] Alina Reece Other Phone: [facility] 03-05-2022 16:24-0400 Diastolic blood pressure 77 mm[Hg] Alina Reece Other Phone: [facility] 03-05-2022 16:24-0400 Heart rate 77 /min Alina Reece Other Phone: [facility] 03-05-2022 16:24-0400 Respiratory rate 16 /min Alina Reece Other Phone: [facility] 03-05-2022 16:24-0400 SaO2% (BldA) [Mass fraction] 97 % Alina Reece Other Phone: [facility] 03-05-2022 16:24-0400 Systolic blood pressure 168 mm[Hg] Alina Reece Other Phone: [facility] 01-28-2022 13:30-0400 Body height 152.4 cm Alina Reece Other Phone: [facility] 01-28-2022 13:30-0400 Body temperature 97.88 [degF] Alina Reece Other Phone: [facility] 01-28-2022 13:30-0400 Diastolic blood pressure 77 mm[Hg] Alina Reece Other Phone: [facility] 01-28-2022 13:30-0400 Heart rate 71 /min Alina Reece Other Phone: [facility] 01-28-2022 13:30-0400 Respiratory rate 20 /min Alina Reece Other Phone: [facility] 01-28-2022 13:30-0400 SaO2% (BldA) [Mass fraction] 97 % Alina Reece Other Phone: [facility] 01-28-2022 13:30-0400 Systolic blood pressure 172 mm[Hg] Alina Reece Other Phone: [facility] 01-16-2022 15:49-0400 Body height 152.4 cm Alina Reece Other Phone: [facility] 01-16-2022 15:49-0400 Body temperature 97.7 [degF] Alina Cokerer Other Phone: [facility] 01-16-2022 15:49-0400 Diastolic blood pressure 74 mm[Hg] Alina Cokerer Other Phone: [facility] 01-16-2022 15:49-0400 Heart rate 74 /min Alina Reece Other Phone: [facility] 01-16-2022 15:49-0400 SaO2% (BldA) [Mass fraction] 99 % Alina Reece Other Phone: [facility] 01-16-2022 15:49-0400 Systolic blood pressure 191 mm[Hg] Alina Cokerer Other Phone: [facility] 01-15-2022 16:00-0400 Body height 151.5 cm Alina Althea Reece Work Phone: [facility] Work Phone: 01-15-2022 16:00-0400 Body mass index (BMI) [Ratio] 30.93 kg/m2 Alina Althea Reece Work Phone: [facility] Work Phone: 01-15-2022 16:00-0400 Body surface area Derived from formula 1.67 m2 Alina O Reece Work Phone: [facility] Work Phone: 01-15-2022 16:00-0400 Body weight 70.98 kg Alina O Reece Work Phone: [facility] Work Phone: 01-15-2022 16:00-0400 Diastolic blood pressure 72 mm[Hg] Alina O Reece Work Phone: [facility] Work Phone: 01-15-2022 16:00-0400 Heart rate 81 /min Alina O Reece Work Phone: [facility] Work Phone: 01-15-2022 16:00-0400 Systolic blood pressure 144 mm[Hg] Alina O Reece Work Phone: [facility] Work Phone: 09-11-2021 11:40-0500 Body height 152.4 cm Alina Reece Other Phone: [facility] 09-11-2021 11:40-0500 Body temperature 97.52 [degF] Alina Reece Other Phone: [facility] 09-11-2021 11:40-0500 Diastolic blood pressure 74 mm[Hg] Alina Reece Other Phone: [facility] 09-11-2021 11:40-0500 Heart rate 81 /min Alina Reece Other Phone: [facility] 09-11-2021 11:40-0500 Respiratory rate 20 /min Alina Reece Other Phone: [facility] 09-11-2021 11:40-0500 SaO2% (BldA) [Mass fraction] 98 % Alina Reece Other Phone: [facility] 09-11-2021 11:40-0500 Systolic blood pressure 168 mm[Hg] Alina Reece Other Phone: [facility] 03-06-2020 14:52-0400 BMI (Body Mass Index) 29.29 kg/m2 [facility] 03-06-2020 14:52-0400 Body weight 68.04 kg Martha [facility] 03-06-2020 14:52-0400 Height 152.4 cm Martha [facility] 11-05-2018 11:20-0500 BMI (Body Mass Index) 29.29 kg/m2 [facility] 11-05-2018 11:20-0500 Body weight 68.04 kg [facility] 11-05-2018 11:20-0500 BP Diastolic 75 mm[Hg] [facility] 11-05-2018 11:20-0500 BP Systolic 187 mm[Hg] [facility] 11-05-2018 11:20-0500 Height 152.4 cm [facility] 11-05-2018 11:20-0500 Pulse (Heart Rate) 71 /min [facility] Encounters Encounter Date Encounter Type Care Provider Facility Start: 10-04-2023 End: 10-04-2023 Emergency department patient visit ALINA KELLY [facility] Start: 06-10-2023 End: 06-11-2023 ambulatory ALINA REECE [facility] Start: 06-10-2023 End: 06-10-2023 ambulatory MARCELLE Willson [facility] Start: 06-10-2023 End: 06-10-2023 Encounter for general adult medical examination without abnormal findings MARCELLE HEDRICK [facility] Start: 06-10-2023 End: 06-10-2023 Assay of hemosiderin, quant Marcelle Hedrick MD [facility] Work Phone: Start: 06-10-2023 End: 06-10-2023 Patient encounter procedure Marcelle Hedrick MD [facility] Procedures Date Procedure Procedure Detail Performing Clinician Start: 06-10-2023 Basic metabolic 2000 panel - Serum or Plasma ALINA REECE Start: 06-10-2023 Blood count hemoglobin ALINA REECE Start: 06-10-2023 Lipid panel ALINA REECE Start: 11-04-2022 Esophagogastroduodenoscopy Alina wesley Work Phone: Start: 06-07-2022 Follow-up visit Start: 12-12-2021 Mammography Marcelle Hedrick MD Start: 12-04-2020 Lipid 1996 panel - Serum or Plasma Yane Hedrick MD Start: 03-20-2020 MRI of lumbar spine without contrast Martha Bella Work Phone: Start: 04-14-2002 Colonoscopy Hussein Miller MD Work Phone: section Alina Lackey edgar Work Phone: Excision of colon Alina Anderson nelson Work Phone: Operation on gallbladder Hussein Andersonyder Work Phone: Plan of Treatment Date Care Activity Detail Author Start: 12-04-2025 Lipid panel Lipid Panel [facility] Start: 11-06-2025 Screening for malignant neoplasm of colon [facility] Start: 06-14-2024 End: 06-14-2024 Patient encounter procedure 06/14/2024 8:30 AM EDT Office Visit [facility] [address] [place] [address] Alina Reece MD [address] [facility] [place], [place] [id number] [facility] Start: 06-10-2023 End: 06-10-2024 Basic metabolic 2000 panel - Serum or Plasma Basic Metabolic Panel Lab Routine Hypertension, unspecified type Expected: 06/10/2023 (Approximate), Expires: 06/10/2024 [facility] Work Phone: Payers Date Payer Category Payer Private Health Insurance AENA A [employer] xxxxxxxxxx 2017-Present xxxxxxxxxx [id number] 2017 Private Health Insurance [id number] 2017 Private Health Insurance [employer] A [employer] FUND [id number] 2017-Present [id number] 2017 Private Health Insurance [id number] 2015 Medicare MEDICARE MEDICAR E PART A & B xxxxxxxxxxx 2015-Present [place] xxxxxxxxxxx [id number] 2015 Medicare [id number] 2015 Medicare MEDICARE MEDICAR E PART A & B [id number] 2015-Present [place] [id number] 2015 Medicare [id number] 2015 Unknown 1950 Unknown [id number] 2.16.840.1.770515.3.579.2 .903 1950 Unknown [id number] 2.16.840.1.173506.3.579.2 .903 1950 Unknown [id number] 2.16.840.1.163515.3.579.2 .903 1950 Unknown [id number] 2.16.840.1.138640.3.579.2 .903 1950 Unknown [id number] 2.16.840.1.483306.3.579.2 .903 1950 Unknown [id number] 2.16.840.1.070090.3.579.2 .903 1950 Unknown [id number] 2.16.840.1.906311.3.579.2 .903 1950 Unknown [id number] 2.16.840.1.475470.3.579.2 .903 1950 Unknown [id number] 2.16.840.1.567594.3.579.2 .356 1950 Unknown [id number] 2.16.840.1.891357.3.579.2 .356 1950 Unknown [id number] 2.16.840.1.701220.3.579.2 .356 1950 Unknown [id number] 2.16.840.1.955121.3.579.2 .356 1950 Unknown [id number] 2.16.840.1.475119.3.579.2 .356 1950 Unknown [id number] 2.16.840.1.449022.3.579.2 .356 1950 Unknown [id number] 2.16.840.1.521613.3.579.2 .356 1950 Unknown [id number] 2.16.840.1.528625.3.579.2 .356 1950 Unknown [id number] 2.16.840.1.130217.3.579.2 .356 1950 Unknown [id number] 2.16.840.1.277227.3.579.2 .356 1950 Unknown [id number] 2.16.840.1.685918.3.579.2 .356 1950 Unknown [id number] 2.16.840.1.127809.3.579.2 .356 1950 Unknown [id number] 2.16.840.1.613594.3.579.2 .356 1950 Unknown [id number] 2.16.840.1.067858.3.579.2 .356 1950 Unknown [id number] 2.16.840.1.400376.3.579.2 .1068 1950 Unknown [id number] 2.16.840.1.136844.3.579.2 .1068 1950 Unknown [id number] 2.16.840.1.468484.3.579.2 .106 1950 Unknown [id number] 2.16.840.1.613129.3.579.2 .1069 1950 Unknown [id number] 2.16.840.1.047747.3.579.2 .1069 1950 Unknown [id number] 2.16.840.1.620519.3.579.2 .1069 1950 Unknown [id number] 2.16.840.1.232544.3.579.2 .1069 1950 Unknown [id number] 2.16.840.1.770356.3.579.2 .1069 1950 Unknown [id number] 2.16.840.1.093844.3.579.2 .1245 1950 Unknown [id number] 2.16.840.1.731613.3.579.2 .1244 1950 Unknown [id number] 2.16.840.1.322195.3.579.2 .902 Social History Date Type Detail Facility Start: 11-05-2018 End: 06-10-2023 Tobacco smoking status WYIS Former smoker [facility] End: 11-05-1993 History of tobacco use Current smoker [facility] Start: 11-05-2018 History SDOH Alcohol Frequency 1 [facility] Start: 1950 Sex Assigned At Not on file [facility] Start: 09-08-2019 End: 09-14-2019 Alcohol intake Lifetime non-drinker (finding) [facility] Exposure to SARS-CoV -2 (event) Not sure [facility] Start: 03-06-2020 End: 06-10-2023 Tobacco use and exposure Never used [facility] Former smoker Former smoker [facility] Work Phone: Tobacco smoking consumption unknown [facility] End: 10-06-1993 History of tobacco use Cigarette Smoker [facility] Start: 04-03-2020 Alcohol 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) [facility] Start: 06-10-2023 Alcohol intake Current drinke r of alcohol (finding) [facility] Work Phone: Gender identity Not on file [facility] Work Phone: Functional Status Date Assessment Result Facility Functional observable [facility] Mental Status Date Assessment Result Facility 09-16-2022 Cognitive functions 0229:47 [facility] Clinical Notes 04-29-2007 to 06-10-2023 Marcelle [...] Cardiac risk counseling documented in this encounter [facility] Work Phone: 11-04-2022 Note History & Physical [...] Last Updated: 04-Nov-2022 06:53 by Fide Person) [facility] 10-28-2022 Miscellaneous Notes Called patient, verified name [...] for follow up (BM). Call transferred to Blockers Skiver to schedule a 8 week f/u appointment with Pepper TURNER at the [facility] documented in this encounter [facility] 10-25-2022 Nurse Note Other: [phone] Upon arrival [...] bathroom and dressed. documented in this encounter [facility] 10-25-2022 History and physical note UPDATED PROCEDURAL [...] Procedure Laterality Date COLONOSCOP W/ OR W/O [facility] SPEC 07/29/05 Colonoscopy PAST SURGICAL HISTORY OF [...] TIME: 8:35 AM documented in this encounter [facility] 10-25-2022 Surgical operation note Patient Name Medical Record # Serena Clemons [id number] Date of : 1950 Admit Date: October 25, 2022 Sex / Age: female/72 year old Discharge Date: October 25, 2022 Date: October 25, 2022 Attending Physician: Hussein Miller MD Service: Pain Managment LOG ID: [id number] Surgery/Procedure Date: 10/25/2022 Incision/Procedure Start Time: 9:41 AM Incision Close/Procedure End Time: 9:50 AM PREOPERATIVE DIAGNOSIS: Thoracic/Lumbosacral Neuritis, Spinal Stenosis - Lumbar with neurogenic claudication, and Lumbar Degenerative Disc POSTOPERATIVE DIAGNOSIS: Same NAME OF OPERATION: L5-S1 Interlaminar epidural steroid injection under fluoroscopic guidance. Had left L 5-S1 and S1 in 2021. SURGEON: Hussein Miller MD DIRECTOR BIOLOGICS: None. ANESTHESIA: Local INFORMED CONSENT: Risks, benefits [...] slowly inserted and advanced (LEFT paramedian) using [id number] technique to normal saline with AP and [...] October 25, 2022 documented in this encounter [facility] 09-17-2022 Note HNO ID: [id number] Author: Hussein Miller MD Service: ? Author [...] supervised home exercise program (HEP): No 5. Life Sciences Instructor: No Passive conservative therapy lasting 6 weeks [...] which included preparing to see the patient, ugdx-xp-vjxg patient care, completing clinical documentation, obtaining and/or reviewing separately obtained history, performing a medically appropriate examination, counseling and educating the patient/family/caregiver, ordering medications, tests, or procedures, communicating with other HCPs (not separately reported), independently interpreting results (not separately reported), and communicating results to the patient/family/caregiver. Hussein Miller MD [facility] 09-17-2022 Miscellaneous Notes Lumbar BERHANE L5-S1 DM, -DL Miller 10/25 documented in this encounter [facility] 09-17-2022 History of Present illness Narrative Ms. [...] supervised home exercise program (HEP): No 5. Life Sciences Instructor: No Passive conservative therapy lasting 6 weeks [...] which included preparing to see the patient, fzuv-bg-jbdj patient care, completing clinical documentation, obtaining and/or reviewing separately obtained history, performing a medically appropriate examination, counseling and educating the patient/family/caregiver, ordering medications, tests, or procedures, communicating with other HCPs (not separately reported), independently interpreting results (not separately reported), and communicating results to the patient/family/caregiver. Hussein Miller MD documented in this encounter [facility] 09-16-2022 Note Send Summary: Discharge Summary Providers: Provider RoleProvider Name Maverick Weller, Fide Bernabe Nurse Cornelio, Minal Carrasco, Alina Kelly Note Recipients: Alina Reece MD Discharge: Summary: Admission Date: .14-Sep-2022 21:34:00 Discharge Date: 16-Sep-2022 Attending Physician at Discharge: dr lobo Admission Reason: SBO(1) Final Discharge Diagnoses: Abdominal pain, Diarrhea Procedures: none Condition at Discharge: satisfactory Disposition at Discharge: home Vital Signs: T PRBPMAPSpO2 Value36.95597002/6696% Date/Time09/16 7: 7: 7: 7: 7:49 Range(36C - 36.8C ) (81 - 102 ) (16 - 18 ) (136 - 172 )/ (66 - 95 ) (91% - 96% ) Date: Weight/Scale Type:Height: 15-Sep-2022 01:3162.7 kg / vsm742.4 cm Physical Exam: General Appearance: AAO x [...] hospitalziation follow up with primary care physician carter two weeks post discharge call 911 or [...] discharge: Full Code Electronic Signatures: Minal Antony (SCREW MACHINE SET UP OPERATOR TOOL-CHLORINATOR OPERATOR) (Signed 16-Sep-2022 09:51) Authored: Send Summary, Summary Content, Ongoing Care, DNR Status, Note Completion Last Updated: 16-Sep-2022 09:51 by Minal Antony (SCREW MACHINE SET UP OPERATOR TOOL-CHLORINATOR OPERATOR) References: 1. Data Referenced From Consult-Surgery 15-Sep-2022 09:04 [facility] 09-15-2022 Note History of Present I llness: [...] this patient. Objective: Objective Information: T PRBPMAPSpO2 Value36.730804091/9596% Date/Time09/15 1: 1: 1: 1: 1:21 Range(36.5C [...] Last Updated: 15-Sep-2022 03:34 by Maverick Jackson) [facility] 08-06-2022 History of Present illness Narrative Patient [...] a week if no improvement in symptoms. [facility] Work Phone: 01-12-2022 History of Present [...] if she wants to start HTN medication [facility] Work Phone: documented as of this encounter (statuses as of 09/17/2022) [facility]03-20-2018 History of Past illness Narrative* Problem Noted Date Resolved Date Encounter for imaging study to confirm nasogastric (NG) tube placement 12/23/2017 12/23/2017 Abdominal distention 12/23/2017 12/23/2017 Other postoperative infection 06/04/2007 documented as of this encounter (statuses as of 09/17/2022) [facility] History of Past illness Narrative* Problem Noted Date Resolved Date Encounter for imaging study to confirm nasogastric (NG) tube placement 12/23/2017 12/23/2017 Abdominal distention 12/23/2017 12/23/2017 Other postoperative infection 06/04/2007 documented as of this encounter (statuses as of 10/26/2022) [facility] History of Past illness Narrative* Problem Noted Date Resolved Date Encounter for imaging study to confirm nasogastric (NG) tube placement 12/23/2017 12/23/2017 Abdominal distention 12/23/2017 12/23/2017 Other postoperative infection 06/04/2007 documented as of this encounter (statuses as of 10/28/2022) [facility]07-[facility]-2007 History of Present illness NarrativePatient presents to the office today to Establish with Urinary Frequency and Dysuria x 2 MO. No Positive Urine Cultures. No incontinence. LUTs are chronic and mild. Denies Hematuria.. Nocturia x1.. Caffeine does worsen LUTs.. No medications for LUTs..No Hx of UTI's. Hx of Kidney Stones. Staghorn Stone 15 years ago. Patient has no large Colon. (removed 14 years ago)[facility] DO Work Phone: [phone] History of Present illness NarrativePatient presents to the office today to Establish with Urinary Frequency and Dysuria x 2 MO. No Positive Urine Cultures. No incontinence. LUTs are chronic and mild. Denies Hematuria.. Nocturia x1.. Caffeine does worsen LUTs.. No medications for LUTs..No Hx of UTI's. Hx of Kidney Stones. Staghorn Stone 15 years ago. Patient has no large Colon. 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 * UTI SYMPTOMS: Urgency, frequency, no burning, no pain, no flank pain for 3 days. She endorses it feels like a uti is coming on . No fever, no other symptoms. Endorses drinking plenty of fluids. * No other concerns. [facility] Work Phone: History of Present illness Narrative* [facility] * ? retinal hemorrrhage * visual changes for 2 months * Fxhx * brother has high bp * no castellanos * no cp * no papitations * no problemswith exericse * has some LBP and ccf and getting epidural [facility] Work Phone: History of Present illness [...] adm moca and determine w/u and treatment [facility] Work Phone: Hospital Discharge instructions* Activity:activity [...] in: 2 weeksScheduled Date/Time: 24-Sep-2022 14:00Location: [address] [address]Phone Number: [phone] * Follow Up Appointment 2:Physician/Dept/Service: Dr Griffith for Referral: as neededLocation: [address] [address]Phone Number: [phone] [facility] Summary Purpose Family History No Family [...] FoundDocuments on File Type Date Recorded Patient Territory Business Manager Expl anation Advance Directives and Livin g Will 12/16/2018 1:00 PM Documents on File Type Date Recorded Patient Territory Business Manager Expl anation Advance Directives and Livin g Will 03/20/2020 7:51 AM Documents on File Type Date Recorded Patient Territory Business Manager Expl anation Advance Directives and Livin g Will 03/20/2020 7:51 AM Documents on File Type Date Recorded Patient Territory Business Manager Expl anation Advance Directives and Livin g Will 12/16/2018 1:00 PM History of Present Illness * Elise Diamond, LEGAL PARAPROFESSIONAL - 12/18/2018 1:00 PM EDT [facility] DAILY TREATMENT NOTE Today's [...] yet Notes left at 10:58 Therapeutic Exercise (58582) Intervention supine hip flexor stretch with PNF [...] to laying flat Parameters 6' Manual Therapy (07001) Intervention Cupping anterior abdominal wall around scars [...] per POC. Elise Diamond PTA STATE LICENSE, [id number] in this encounter* Rosalind Deras, PT - 01/06/2019 1:45 PM EDT [facility] DAILY TREATMENT NOTE Today's [...] Boyer; 07/17; 1:45 - 2:10 Therapeutic Exercise (14194) Intervention PT education on D/C planning and measurements 20' Parameters -- Intervention -- Parameters -- Intervention -- Manual Therapy (95136) Intervention -- Parameters Manual long axis distraction R hip, 30 with belt Add more exercises? Yes Manual Therapy (29908) Intervention -- Parameters -- PT Treatment Times [...] Visit: Discharge Rosalind Deras PT State License, [id number] in this encounter* Rosalind Deras, PT - 09/14/2019 11:30 AM EST [facility] Evaluation Today's Date 09/14/2019 Patient Name: Serena Celmons Date of : 1950 Case Name: Therapy [...] Social History Occupation: retired Home environment: house Restoration, social, or cultural considerations to be made [...] 1213 OTHER Notes Rosalind 11:30-12:10 Therapeutic Exercise (22486) Intervention Scifit (A) Parameters DN to Lumbar [...] normal ADLs. Rosalind Deras PT State License, [id number] documented in this encounter* Idalia Escalante, JASVIR [...] HEP. documented in this encounter* Ines Chamberlain, CHLORINATOR OPERATOR - 10/19/2019 4:58 PM EST [facility] [address] [facility] [address] [facility] [phone] Chief Complaint Patient presents with Lower Back [...] Deras, PT - 12/16/2018 1:00 PM EDT [facility] DAILY TREATMENT NOTE Today's [...] Cannot lay totally flat yet Therapeutic Exercise (10915) Intervention supine hip flexor stretch with PNF [...] to laying flat Parameters 6' Manual Therapy (28125) Intervention Cupping anterior abdominal wall around scars [...] andABD strength. Rosalind Deras, CHRIS State License, [id number] in this encounter* Elise Diamond, LEGAL PARAPROFESSIONAL - 12/25/2018 1:00 PM EDT [facility] DAILY TREATMENT NOTE Today's [...] Treatments: Physical Therapy Exercise Log - 12/25/18 5053 OTHER Precautions/Contraindications Cannot lay totally flat yet Notes 1:03-1:28 Therapeutic Exercise (44007) Intervention supine hip flexor stretch with PNF (N/A) Intervention S/L Hip Abd, RTB, 2x10 Parameters Hip Add, bolster, 5 x10 Intervention Clamshells, x15, Zay, RTB Parameters Bridging 2x10, RTB Intervention slant board gastroc stretch, 20 x2 Parameters Shuttle B Squat, 37# 2x10 Intervention Standing HS stretch, 20 x2 on 6 inch step Manual Therapy (41629) Intervention Cupping anterior abdominal wall around scars, [...] as needed. Elise Diamond PTA STATE LICENSE, [id number] in this encounter* Viau, Martha Alina, MD - 03/06/2020 3:22 PM EDT [facility] [address]) [facility] [address] [facility] [phone] Serena Clemons is a 69 y.o. female [...] documented in this encounter* Sincere Allison Mary, CHLORINATOR OPERATOR - 11/05/2018 7:50 AM EST Subjective: Serena [...] file Gets together: Not on file Attends tenriism service: Not on file Active member of [...] Up: documented in this encounter* Elise Diamond, LEGAL PARAPROFESSIONAL - 01/01/2019 1:00 PM EDT [facility] DAILY TREATMENT NOTE Today's [...] totally flat yet Notes 1:06-1:46 Therapeutic Exercise (84073) Intervention Eccentric hip ADD with manual resistance x10 Parameters Clamshells, x15, Zay, RTB Intervention Bridging x15, RTB Parameters Shuttle B Squat, 37# 2x10 Intervention Lazy butterfly 10 x5 Parameters -- Manual Therapy (18166) Intervention pin/stretch R hip ADD x10 Parameters Manual long axis distraction R hip, 30 x5 with belt Add more exercises? Yes Manual Therapy (37685) Intervention S/L piriformis STM 5 min Parameters [...] RLE sxs Elise Diamond PTA STATE LICENSE, [id number] in this encounter Assessments Diagnosis Osteoarthritis of [...] Without Contrast Viau, Martha Chanel MD [address] [place] [address] Status Reason Specialty Diagnoses / Procedures Referred By Contact Referred To Contact Authorized Patient Preference Physical Therapy / Rehabilitation Diagnoses Primary osteoarthritis of right hip Osteoarthritis of spine with radiculopathy, lumbar region Allison Post CNP [address] [place] [address] Status Reason Specialty Diagnoses / Procedures Re ferred By Contact Referred To Contact New Request Radiology Diagnoses Low back pain, unspecified back pain laterality, unspecified chronicity, unspecified whether sciatica present Spinal stenosis of lumbar region with neurogenic claudication Procedures MR Lumbar Spine Without Contrast Viau, Martha Chanel MD [address] [place] [address] Status Reason Specialty Diagnoses / Procedures Referred By Contact Referred To Contact Authorized Patient Preference Physical Therapy / Rehabilitation Diagnoses DDD (degenerative disc disease), lumbar Chamberlain, Ines Pushpa, CHLORINATOR OPERATOR [address] [place] [address] [facility] [address] [place] [address] [place] [address] Specialty Diagnoses / Procedures Referred By Contac t Referred To Contact Radiology Diagnoses Menopause Procedures XR DEXA bone density Marcelle Hedrick MD Referral ID Status Reason Start Date Expiration Date Visits Requested Visits Authorized [id number] Authorized Perform Procedure 06/10/2023 12/07/2023 1 1 Specialty Diagnoses / Procedures Referred By Contac t Referred To Contact Radiology Diagnoses Encounter for screening mammogram for breast cancer Procedures BI mammo bilateral screening tomosynthesis Marcelle Hedrick MD Referral ID Status Reason Start Date Expiration Date Visits Requested Visits Authorized [id number] Authorized Perform Procedure 06/10/2023 12/07/2023 1 1 [...] DATE CREATED AUTHOR AUTHOR'S ORGANIZ ATION 12/13/2018 [facility] DATE CREATED AUTHOR AUTHOR'S ORGANIZ ATION 05/16/2019 [facility] DATE CREATED AUTHOR AUTHOR'S ORGANIZ ATION 03/06/2020 [facility] DATE CREATED AUTHOR AUTHOR'S ORGANIZ ATION 03/21/2020 [facility] DATE CREATED AUTHOR AUTHOR'S ORGANIZ ATION 04/24/2020 [facility] DATE CREATED AUTHOR AUTHOR'S ORGANIZ ATION 09/28/2022 [facility] DATE CREATED AUTHOR AUTHOR'S ORGANIZ ATION 09/28/2022 [facility] DATE CREATED AUTHOR AUTHOR'S ORGANIZ ATION 11/09/2022 [facility] DATE CREATED AUTHOR AUTHOR'S ORGANIZ ATION 01/11/2023 [facility] DATE CREATED AUTHOR AUTHOR'S ORGANIZ ATION 06/15/2023 [facility] DATE CREATED AUTHOR AUTHOR'S ORGANIZ ATION 06/22/2023 [facility] DATE CREATED AUTHOR AUTHOR'S ORGANIZ ATION 10/11/2023 [facility] Reason for Visit (unrecogniz ed section and content) Status Reason Specialty Diagnoses / Procedures Referred By Contact Referred To Contact Authorized Patient Preference Physical Therapy / Rehabilitation Diagnoses Primary osteoarthritis of right hip Osteoarthritis of spine with radiculopathy, lumbar region Allison Post, CHLORINATOR OPERATOR [address] [place] [address] Status Reason Specialty Diagnoses / Procedures Referred By Contact Referred To Contact Authorized Patient Preference Physical Therapy / Rehabilitation Diagnoses Primary osteoarthritis of right hip Osteoarthritis of spine with radiculopathy, lumbar region Allison Post, KIRBY [address] [place] [address] Reason Comments Physical Therapy DDD (degenerative di sc disease), lumbar Status Reason Specialty Diagnoses / Procedures Referred By Contact Referred To Contact Authorized Patient Preference Physical Therapy / Rehabilitation Diagnoses DDD (degenerative disc disease), lumbar Ines Chamberlain, CHLORINATOR OPERATOR [address] [place] [address] [facility] [address] [place] [address] [place] [address] Reason Comments Follow-up Status Reason Specialty Diagnoses / Procedures Referre d By Contact Referred To Contact Closed Radiology Diagnoses Low back pain, unspecified back pain laterality, unspecified chronicity, unspecified whether sciatica present Spinal stenosis of lumbar region with neurogenic claudication Procedures MR Lumbar Spine Without Contrast ChelsiuMartha MD [address] [place] [address] Reason Comments Pain Follow-up Status Reason Specialty Diagnoses / Procedures Referred By Contact Referred To Contact Closed Orthopedic Surgery Diagnoses Low back pain, unspecified back pain laterality, unspecified chronicity, unspecified whether sciatica present Gayatri Thomas, CHLORINATOR OPERATOR [address] [place] [address] Martha Bella MD [address] [place] [address] Reason Comments Pain Reason Comments Follow Up [...] or prosecute any alcohol or drug abuse patient.[facility] the event this information is protected by the Federal Confidentiality of Alcohol and Drug Abuse Patient Records regulations: The Federal rules restrict any use of the information to criminally investigate or prosecute any alcohol or drug abuse patient.[facility] the event this information is protected by the Federal Confidentiality of Alcohol and Drug Abuse Patient Records regulations: The Federal rules restrict any use of the information to criminally investigate or prosecute any alcohol or drug abuse patient.[facility] Hospital[facility] the event this information is protected by the Federal Confidentiality of Alcohol and Drug Abuse Patient Records regulations: The Federal rules restrict any use of the information to criminally investigate or prosecute any alcohol or drug abuse patient.[facility] Care Teams (unrecognized sec tion and content) Exploration Geologist Relationship Specialty Start Date End Date Alina Reece MD [address] [place] [phone] PCP - General 11/18/05 Exploration Geologist Relationship Specialty Start Date End Date Alina Reece MD [address] [place] [phone] PCP - General 11/18/05 Exploration Geologist Relationship Specialty Start Date End Date Alina Reece MD [address] [place] [address] PCP - General 11/18/05 Exploration Geologist Relationship Specialty Start Date End Date Alina Reece MD [facility] [facility], [place] [address] [phone] PCP - General 06/06/20 Marcelle Hedrick MD PCP - [facility] Attributed Provider 04/05/22 Continuous Active and [...] BE BASED ON THE PRIMARY CLINICAL RECORDS. [facility]. provides no warranty or guarantee of the accuracy or completeness of information in this document.
[2023-12-10 09:06] LABS: Hematocrit 35.9 % (37-47); Hemoglobin 11.7 g/dL (12.0-15.0); Mean Corp Hgb Conc 32.6 g/dL (32-36); Mean Corpuscular Volume 82.7 fL (81-99); Mean Platelet Vol. 10.8 fl (6.2-12.0); Platelet Count 322 K/mm3 (150-450); RBC Distribution Width CV 14.1 % (11.6-14.6); RBC Distribution Width SD 42.5 fl (35.1-43.9); Red Blood Count 4.34 M/mm3 (4.2-5.4); White Blood Count 6.8 K/mm3 (4.4-11.0)
[2023-12-10 09:24] LABS: ALB/GLOB Ratio 0.7 RATIO (0.9-2.4); AST(SGOT) 20 U/L (15-37); Alanine Aminotransfer ALT/SGPT 21 U/L (13-56); Albumin, Serum 2.9 g/dL (3.2-5.0); Alkaline Phosphatase 61 U/L (45-117); Anion Gap 6 (5-15); BUN 6 mg/dL (7-18); BUN/Creat Ratio 6.8 RATIO (10-20); Calcium,Total 8.9 mg/dL (8.5-10.1); Chloride 111 mmol/L (98-107); Creatinine, Serum 0.88 mg/dL (0.55-1.02); EST Glomerular Filtration Rate 67 mL/min (>60); Est Glom Filt Rate - Afr Amer 81 mL/min (>60); Glucose 101 mg/dL (74-106); Potassium 3.7 mmol/L (3.5-5.1); Protein, Total 6.9 g/dL (6.4-8.2); Sodium Level 142 mmol/L (136-145)
== END 2023-12-10 08:18 | disposition home or self-care (01) ==
LOC: MEDOUTP 08:18
PROVIDERS: PCP Family Medicine; Referring Provider Nurse Practitioner Family; Visit Provider Nurse Practitioner Family
DX: N39.0 Urinary tract infection, site not specified (principal); B96.1 Klebsiella pneumoniae [K. pneumoniae] as the cause of diseases classified elsewhere; A77.40 Ehrlichiosis, unspecified
CPT/HCPCS: 36592; 80053; 85027; A4216

== ENCOUNTER 2023-12-17 08:35 | Outpatient (CLI) | payer MEDICARE, OTHER, SELFPAY ==
[2023-12-17 08:59] LABS: Hematocrit 36.7 % (37-47); Hemoglobin 11.7 g/dL (12.0-15.0); Mean Corp Hgb Conc 31.9 g/dL (32-36); Mean Corpuscular Hgb 26.5 pg (27.0-32.0); Mean Corpuscular Volume 83.2 fL (81-99); Mean Platelet Vol. 10.2 fl (6.2-12.0); Platelet Count 402 K/mm3 (150-450); RBC Distribution Width CV 14.6 % (11.6-14.6); Red Blood Count 4.41 M/mm3 (4.2-5.4); White Blood Count 6.8 K/mm3 (4.4-11.0)
[2023-12-17 09:20] LABS: ALB/GLOB Ratio 0.7 RATIO (0.9-2.4); AST(SGOT) 17 U/L (15-37); Alanine Aminotransfer ALT/SGPT 22 U/L (13-56); Alkaline Phosphatase 62 U/L (45-117); Anion Gap 7 (5-15); BUN 9 mg/dL (7-18); BUN/Creat Ratio 10.4 RATIO (10-20); Chloride 108 mmol/L (98-107); Creatinine, Serum 0.87 mg/dL (0.55-1.02); EST Glomerular Filtration Rate 68 mL/min (>60); Est Glom Filt Rate - Afr Amer 83 mL/min (>60); Globulin 4.1 g/dL (2.2-4.2); Glucose 101 mg/dL (74-106); Potassium 3.9 mmol/L (3.5-5.1); Protein, Total 7.1 g/dL (6.4-8.2); Sodium Level 141 mmol/L (136-145)
== END 2023-12-17 08:36 | disposition home or self-care (01) ==
LOC: MEDOUTP 08:35
PROVIDERS: PCP Family Medicine; Referring Provider Nurse Practitioner Family; Visit Provider Nurse Practitioner Family
DX: N39.0 Urinary tract infection, site not specified (principal); Z45.2 Encounter for adjustment and management of vascular access device
CPT/HCPCS: 36592; 80053; 85027; A4216

== ENCOUNTER → 2023-12-23 | Outpatient (CLI) | payer MEDICARE, OTHER, SELFPAY ==
[2023-12-23 15:46] LABS: Absolute Lymphocyte Count 1.26 X10^3/uL (0.83-4.51); Absolute Neutrophil Count 4.2 X10^3/uL (2.0-7.7); Basophil# 0.04 X10^3/uL; Basophil% 0.7 % (0-1); Eosinophil# 0.05 X10^3/uL; Eosinophils% 0.8 % (0-5); Hematocrit 40.2 % (37-47); Hemoglobin 12.7 g/dL (12.0-15.0); Lymphocyte # 1.26 X10^3/ul (0.83-4.51); Lymphocyte % 21.1 % (19-41); Mean Corp Hgb Conc 31.6 g/dL (32-36); Mean Corpuscular Hgb 27.3 pg (27.0-32.0); Mean Corpuscular Volume 86.3 fL (81-99); Mean Platelet Vol. 10.9 fl (6.2-12.0); Monocyte# 0.42 X10^3/uL; NRBC Flagged by Analyzer 0 % (0-5); Neutrophil # 4.18 X10^3/uL (2.7-7.7); Neutrophil % 70.2 % (47-70); Platelet Count 378 K/mm3 (150-450); RBC Distribution Width SD 47.3 fl (35.1-43.9); Red Blood Count 4.66 M/mm3 (4.2-5.4)
[2023-12-23 16:01] LABS: ALB/GLOB Ratio 0.9 RATIO (0.9-2.4); AST(SGOT) 20 U/L (15-37); Alanine Aminotransfer ALT/SGPT 23 U/L (13-56); Albumin, Serum 3.5 g/dL (3.2-5.0); Alkaline Phosphatase 69 U/L (45-117); Anion Gap 8 (5-15); BUN 7 mg/dL (7-18); BUN/Creat Ratio 8.6 RATIO (10-20); Calcium,Total 8.9 mg/dL (8.5-10.1); Chloride 107 mmol/L (98-107); Creatinine, Serum 0.82 mg/dL (0.55-1.02); EST Glomerular Filtration Rate 73 mL/min (>60); Est Glom Filt Rate - Afr Amer 88 mL/min (>60); Ferritin 64 ng/mL (8-252); Glucose 85 mg/dL (74-106); Iron 65 ug/dL (50-170); Potassium 4.1 mmol/L (3.5-5.1); Protein, Total 7.5 g/dL (6.4-8.2); Sodium Level 142 mmol/L (136-145)
[2023-12-23 17:43] LABS: Vitamin D,25 Hydroxy > 150.0 ng/mL (29.95-100.01)
== END | disposition home or self-care (01) ==
LOC: LABSPEC 15:31
PROVIDERS: PCP Family Medicine; Referring Provider Nurse Practitioner Family; Visit Provider Nurse Practitioner Family
DX: R53.82 Chronic fatigue, unspecified (principal); D64.9 Anemia, unspecified; E55.9 Vitamin D deficiency, unspecified
CPT/HCPCS: 80053; 82306; 82728; 83540; 85025

== ENCOUNTER 2024-01-07 09:17 | Outpatient (CLI) | payer MEDICARE, OTHER, SELFPAY ==
[2024-01-07 09:49] LABS: Hemoglobin 11.7 g/dL (12.0-15.0); Mean Corp Hgb Conc 31.6 g/dL (32-36); Mean Corpuscular Hgb 26.9 pg (27.0-32.0); Mean Corpuscular Volume 85.1 fL (81-99); Mean Platelet Vol. 10.8 fl (6.2-12.0); Platelet Count 293 K/mm3 (150-450); RBC Distribution Width CV 15.1 % (11.6-14.6); RBC Distribution Width SD 46.9 fl (35.1-43.9); Red Blood Count 4.35 M/mm3 (4.2-5.4)
[2024-01-07 10:05] LABS: ALB/GLOB Ratio 0.8 RATIO (0.9-2.4); AST(SGOT) 16 U/L (15-37); Alanine Aminotransfer ALT/SGPT 21 U/L (13-56); Albumin, Serum 3.2 g/dL (3.2-5.0); Alkaline Phosphatase 64 U/L (45-117); Anion Gap 4 (5-15); BUN 13 mg/dL (7-18); BUN/Creat Ratio 15.9 RATIO (10-20); Calcium,Total 9.2 mg/dL (8.5-10.1); Chloride 110 mmol/L (98-107); Creatinine, Serum 0.82 mg/dL (0.55-1.02); EST Glomerular Filtration Rate 73 mL/min (>60); Est Glom Filt Rate - Afr Amer 88 mL/min (>60); Glucose 94 mg/dL (74-106); Protein, Total 7.2 g/dL (6.4-8.2); Sodium Level 142 mmol/L (136-145)
== END 2024-01-07 09:18 | disposition home or self-care (01) ==
LOC: MEDOUTP 09:17
PROVIDERS: PCP Family Medicine; Referring Provider Nurse Practitioner Family; Visit Provider Nurse Practitioner Family
DX: N39.0 Urinary tract infection, site not specified (principal); A77.40 Ehrlichiosis, unspecified; B96.1 Klebsiella pneumoniae [K. pneumoniae] as the cause of diseases classified elsewhere
CPT/HCPCS: 36592; 80053; 85027; A4216

== ENCOUNTER 2024-01-14 09:27 | Outpatient (CLI) | payer MEDICARE, OTHER, SELFPAY ==
[2024-01-14 09:46] LABS: Hematocrit 37.5 % (37-47); Mean Corpuscular Hgb 27.1 pg (27.0-32.0); Mean Corpuscular Volume 84.8 fL (81-99); Platelet Count 309 K/mm3 (150-450); RBC Distribution Width CV 14.8 % (11.6-14.6); RBC Distribution Width SD 45.8 fl (35.1-43.9); Red Blood Count 4.42 M/mm3 (4.2-5.4); White Blood Count 6.9 K/mm3 (4.4-11.0)
[2024-01-14 10:01] LABS: ALB/GLOB Ratio 0.9 RATIO (0.9-2.4); AST(SGOT) 18 U/L (15-37); Alanine Aminotransfer ALT/SGPT 20 U/L (13-56); Albumin, Serum 3.4 g/dL (3.2-5.0); Alkaline Phosphatase 68 U/L (45-117); Anion Gap 4 (5-15); BUN 11 mg/dL (7-18); BUN/Creat Ratio 14.3 RATIO (10-20); Calcium,Total 9.4 mg/dL (8.5-10.1); Chloride 110 mmol/L (98-107); Creatinine, Serum 0.77 mg/dL (0.55-1.02); EST Glomerular Filtration Rate 78 mL/min (>60); Est Glom Filt Rate - Afr Amer 94 mL/min (>60); Globulin 3.9 g/dL (2.2-4.2); Glucose 96 mg/dL (74-106); Potassium 4.2 mmol/L (3.5-5.1); Protein, Total 7.3 g/dL (6.4-8.2); Sodium Level 140 mmol/L (136-145)
== END 2024-01-14 09:28 | disposition home or self-care (01) ==
LOC: MEDOUTP 09:28
PROVIDERS: PCP Family Medicine; Referring Provider Nurse Practitioner Family; Visit Provider Nurse Practitioner Family
DX: N39.0 Urinary tract infection, site not specified (principal); B96.1 Klebsiella pneumoniae [K. pneumoniae] as the cause of diseases classified elsewhere; A77.40 Ehrlichiosis, unspecified
CPT/HCPCS: 36592; 80053; 85027; A4216

== ENCOUNTER 2024-01-21 09:29 | Outpatient (CLI) | payer MEDICARE, OTHER, SELFPAY ==
[2024-01-21 10:04] LABS: Hematocrit 36.9 % (37-47); Hemoglobin 11.8 g/dL (12.0-15.0); Mean Corpuscular Hgb 27.1 pg (27.0-32.0); Mean Corpuscular Volume 84.6 fL (81-99); Mean Platelet Vol. 10.6 fl (6.2-12.0); Platelet Count 258 K/mm3 (150-450); RBC Distribution Width CV 14.6 % (11.6-14.6); RBC Distribution Width SD 45.1 fl (35.1-43.9); Red Blood Count 4.36 M/mm3 (4.2-5.4); White Blood Count 5.8 K/mm3 (4.4-11.0)
[2024-01-21 10:27] LABS: ALB/GLOB Ratio 0.9 RATIO (0.9-2.4); AST(SGOT) 16 U/L (15-37); Alanine Aminotransfer ALT/SGPT 20 U/L (13-56); Albumin, Serum 3.5 g/dL (3.2-5.0); Alkaline Phosphatase 66 U/L (45-117); Anion Gap 4 (5-15); BUN 11 mg/dL (7-18); BUN/Creat Ratio 12.9 RATIO (10-20); Chloride 110 mmol/L (98-107); Creatinine, Serum 0.85 mg/dL (0.55-1.02); EST Glomerular Filtration Rate 69 mL/min (>60); Est Glom Filt Rate - Afr Amer 84 mL/min (>60); Globulin 3.9 g/dL (2.2-4.2); Glucose 104 mg/dL (74-106); Potassium 4.2 mmol/L (3.5-5.1); Protein, Total 7.4 g/dL (6.4-8.2); Sodium Level 141 mmol/L (136-145)
== END 2024-01-21 09:30 | disposition home or self-care (01) ==
LOC: MEDOUTP 09:29
PROVIDERS: PCP Family Medicine; Referring Provider Nurse Practitioner Family; Visit Provider Nurse Practitioner Family
DX: N39.0 Urinary tract infection, site not specified (principal); B96.1 Klebsiella pneumoniae [K. pneumoniae] as the cause of diseases classified elsewhere; A77.40 Ehrlichiosis, unspecified
CPT/HCPCS: 36592; 80053; 85027; A4216

== ENCOUNTER 2024-01-28 09:22 | Outpatient (CLI) | payer MEDICARE, OTHER, SELFPAY ==
[2024-01-28 09:50] LABS: Absolute Lymphocyte Count 1.22 X10^3/uL (0.83-4.51); Absolute Neutrophil Count 4.1 X10^3/uL (2.0-7.7); Basophil# 0.06 X10^3/uL; Eosinophil# 0.11 X10^3/uL; Eosinophils% 1.8 % (0-5); Hematocrit 35.6 % (37-47); Hemoglobin 11.3 g/dL (12.0-15.0); Lymphocyte # 1.22 X10^3/ul (0.83-4.51); Lymphocyte % 20.1 % (19-41); Mean Corp Hgb Conc 31.7 g/dL (32-36); Mean Corpuscular Hgb 26.7 pg (27.0-32.0); Mean Corpuscular Volume 84.2 fL (81-99); Mean Platelet Vol. 10.4 fl (6.2-12.0); Monocyte# 0.57 X10^3/uL; Monocyte% 9.4 % (0-10); NRBC Flagged by Analyzer 0 % (0-5); Neutrophil # 4.09 X10^3/uL (2.7-7.7); Neutrophil % 67.4 % (47-70); Platelet Count 286 K/mm3 (150-450); RBC Distribution Width CV 14.4 % (11.6-14.6); RBC Distribution Width SD 44.2 fl (35.1-43.9); Red Blood Count 4.23 M/mm3 (4.2-5.4); White Blood Count 6.1 K/mm3 (4.4-11.0)
[2024-01-28 10:04] LABS: ALB/GLOB Ratio 0.9 RATIO (0.9-2.4); AST(SGOT) 17 U/L (15-37); Alanine Aminotransfer ALT/SGPT 19 U/L (13-56); Albumin, Serum 3.3 g/dL (3.2-5.0); Alkaline Phosphatase 69 U/L (45-117); Anion Gap 4 (5-15); BUN 14 mg/dL (7-18); BUN/Creat Ratio 17.7 RATIO (10-20); Calcium,Total 8.8 mg/dL (8.5-10.1); Chloride 110 mmol/L (98-107); Creatinine, Serum 0.79 mg/dL (0.55-1.02); EST Glomerular Filtration Rate 76 mL/min (>60); Est Glom Filt Rate - Afr Amer 91 mL/min (>60); Globulin 3.6 g/dL (2.2-4.2); Glucose 109 mg/dL (74-106); Potassium 3.8 mmol/L (3.5-5.1); Protein, Total 6.9 g/dL (6.4-8.2); Sodium Level 141 mmol/L (136-145)
== END 2024-01-28 09:23 | disposition home or self-care (01) ==
LOC: MEDOUTP 09:22
PROVIDERS: PCP Family Medicine; Referring Provider Nurse Practitioner Family; Visit Provider Nurse Practitioner Family
DX: N39.0 Urinary tract infection, site not specified (principal); B96.1 Klebsiella pneumoniae [K. pneumoniae] as the cause of diseases classified elsewhere; A77.40 Ehrlichiosis, unspecified
CPT/HCPCS: 36592; 80053; 85025; A4216

== ENCOUNTER 2024-03-26 09:12 | Outpatient (RCR) | payer MEDICARE, OTHER, SELFPAY ==
[2024-03-26 09:47] LABS: Absolute Lymphocyte Count 1.43 X10^3/uL (0.83-4.51); Absolute Neutrophil Count 4.7 X10^3/uL (2.0-7.7); Basophil# 0.06 X10^3/uL; Basophil% 0.9 % (0-1); Eosinophils% 1.4 % (0-5); Hematocrit 40.7 % (37-47); Hemoglobin 12.8 g/dL (12.0-15.0); Lymphocyte # 1.43 X10^3/ul (0.83-4.51); Lymphocyte % 20.5 % (19-41); Mean Corp Hgb Conc 31.4 g/dL (32-36); Mean Corpuscular Hgb 26.8 pg (27.0-32.0); Mean Corpuscular Volume 85.3 fL (81-99); Mean Platelet Vol. 10.4 fl (6.2-12.0); Monocyte# 0.63 X10^3/uL; NRBC Flagged by Analyzer 0 % (0-5); Neutrophil % 67.5 % (47-70); Platelet Count 310 K/mm3 (150-450); RBC Distribution Width CV 13.9 % (11.6-14.6); RBC Distribution Width SD 43.3 fl (35.1-43.9); Red Blood Count 4.77 M/mm3 (4.2-5.4)
[2024-03-26 10:11] LABS: ALB/GLOB Ratio 0.9 RATIO (0.9-2.4); AST(SGOT) 19 U/L (15-37); Alanine Aminotransfer ALT/SGPT 17 U/L (13-56); Albumin, Serum 3.4 g/dL (3.2-5.0); Alkaline Phosphatase 84 U/L (45-117); Anion Gap 4 (5-15); BUN 10 mg/dL (7-18); BUN/Creat Ratio 9.6 RATIO (10-20); Calcium,Total 8.9 mg/dL (8.5-10.1); Chloride 107 mmol/L (98-107); Creatinine, Serum 1.04 mg/dL (0.55-1.02); EST Glomerular Filtration Rate 55 mL/min (>60); Est Glom Filt Rate - Afr Amer 67 mL/min (>60); Globulin 3.6 g/dL (2.2-4.2); Glucose 85 mg/dL (74-106); Potassium 3.5 mmol/L (3.5-5.1); Sodium Level 140 mmol/L (136-145)
== END 2024-04-04 23:59 ==
LOC: PAVLAB 09:12
PROVIDERS: PCP Family Medicine; Visit Provider Nurse Practitioner Family
DX: E61.7 Deficiency of multiple nutrient elements (principal)
CPT/HCPCS: 36415; 80053; 85025

== ENCOUNTER → 2024-04-02 | Outpatient (CLI) | payer MEDICARE, OTHER, SELFPAY ==
[2024-04-06 05:07] LABS: G6PD Quant Test 302 (127-427); Red Blood Cell Count Test/G6PD 4.55 x10E6/uL (3.77-5.28)
== END | disposition home or self-care (01) ==
LOC: LABSPEC 12:03
PROVIDERS: PCP Family Medicine; Referring Provider Nurse Practitioner Family; Visit Provider Nurse Practitioner Family
DX: D64.89 Other specified anemias (principal); B99.8 Other infectious disease
CPT/HCPCS: 82955

== ENCOUNTER 2024-11-10 12:21 | Outpatient (CLI) | payer MEDICARE, OTHER, SELFPAY ==
[2024-11-10 14:38] LABS: Absolute Lymphocyte Count 1.73 X10^3/uL (0.83-4.51); Absolute Neutrophil Count 5.5 X10^3/uL (2.0-7.7); Basophil# 0.05 X10^3/uL; Basophil% 0.6 % (0-1); Eosinophil# 0.11 X10^3/uL; Eosinophils% 1.4 % (0-5); Hematocrit 42.3 % (37-47); Hemoglobin 13.7 g/dL (12.0-15.0); Lymphocyte # 1.73 X10^3/ul (0.83-4.51); Lymphocyte % 21.3 % (19-41); Mean Corp Hgb Conc 32.4 g/dL (32-36); Mean Corpuscular Volume 86.3 fL (81-99); Mean Platelet Vol. 12.8 fl (6.2-12.0); Monocyte# 0.75 X10^3/uL; Monocyte% 9.2 % (0-10); NRBC Flagged by Analyzer 0 % (0-5); Neutrophil # 5.47 X10^3/uL (2.7-7.7); Neutrophil % 67.1 % (47-70); Platelet Count 271 K/mm3 (150-450); RBC Distribution Width CV 14.6 % (11.6-14.6); RBC Distribution Width SD 46.5 fl (35.1-43.9); White Blood Count 8.1 K/mm3 (4.4-11.0)
[2024-11-10 14:42] LABS: Erythrocyte Sedimentation Rate 2 mm/hr (0-30)
[2024-11-10 15:10] LABS: ALB/GLOB Ratio 1.2 RATIO (0.9-2.4); AST(SGOT) 10 U/L (15-37); Alanine Aminotransfer ALT/SGPT 15 U/L (13-56); Albumin, Serum 3.8 g/dL (3.2-5.0); Alkaline Phosphatase 99 U/L (45-117); Anion Gap 7 (5-15); BUN 17 mg/dL (7-18); BUN/Creat Ratio 16.2 RATIO (10-20); CRP 4.53 mg/L (0.0-3.0); Calcium,Total 9.3 mg/dL (8.5-10.1); Chloride 108 mmol/L (98-107); Creatinine, Serum 1.05 mg/dL (0.55-1.02); EST Glomerular Filtration Rate 54 mL/min (>60); Est Glom Filt Rate - Afr Amer 66 mL/min (>60); Free T3 3.2 pg/mL (2.18-3.98); Globulin 3.2 g/dL (2.2-4.2); Glucose 80 mg/dL (74-106); Potassium 3.9 mmol/L (3.5-5.1); Sodium Level 142 mmol/L (136-145); T4 Free Direct 1.09 ng/dL (0.76-1.46)
[2024-11-12 11:08] LABS: ANTINUCLEAR ANTIBODIES DIRECT Negative (Negative)
== END 2024-11-10 23:59 | disposition home or self-care (01) ==
LOC: LABSPEC 12:26
PROVIDERS: PCP Family Medicine; Referring Provider Nurse Practitioner Family; Visit Provider Nurse Practitioner Family
DX: N39.0 Urinary tract infection, site not specified (principal); R41.81 Age-related cognitive decline; E61.7 Deficiency of multiple nutrient elements; R41.89 Other symptoms and signs involving cognitive functions and awareness; A77.40 Ehrlichiosis, unspecified; R53.82 Chronic fatigue, unspecified
CPT/HCPCS: 80053; 84439; 84443; 84481; 85025; 85652; 86038; 86140